=== PATIENT | female | born 1930 | race Hispanic/Latino ===

== ENCOUNTER 2018-07-01 12:39 | Inpatient (IN) | payer MEDICARE ==
--- NOTE | 2018-07-01 23:04 | CP.PCM.HP ---
History of Present Illness - History of Present Illness History of Present Illness: CC: Rehab s/p CVA HPI: This is an 88 y/o female with MHx significant for HTN, HLD, hypothyroid, DM2, glaucoma, and prior colon cancer who comes from [facility] [place] where after initially being admitted for a psychiatric diagnosis, she later developed a CVA. Per records, she was taken from psychiatric floor to ED for shuffling gait and R sided facial droop on 06/28/2018. Imaging revealed a L basal ganglia infarct. Currently she c/o only some weakness in RUE and RLE; she also has a R facial droop. Denies CP, SOB. Denies n/v/d. Patient does have a Crum in place. ROS: 14 systems reviewed, negative other than HPI MHx: HTN, HLD, hypothyroid, DM2, glaucoma, and prior colon cancer SHx: appendectomy, cholecystectomy Allergies: NKDA Medications: Per med rec Family Hx: Patient does not provide any relevant FHx Social Hx: 10 pack year smoking Hx but quit 30 years ago; no EtOH; Lives alone Present on Admission - Present on Admission Any Indicators Present on Admission: No Past Patient History - Infectious Disease Hx of Infectious Diseases: None - Tetanus Immunizations Tetanus Immunization: Unknown - Past Social History Smoking Status: Never Smoked - CARDIAC Hx Cardiac Disorders: Yes Hx Hypertension: Yes - PULMONARY Hx Chronic Obstructive Pulmonary Disease (COPD): Yes - NEUROLOGICAL Hx Neurological Disorder: Yes Other/Comment: neuropathy - HEENT Hx HEENT Problems: Yes Hx Cataracts: Yes (LEFT WITH BLURRY VISION) Hx Glaucoma: Yes (RIGHT EYE) - RENAL Hx Chronic Kidney Disease: No - ENDOCRINE/METABOLIC Hx Diabetes Mellitus Type 2: Yes - HEMATOLOGICAL/ONCOLOGICAL Hx Blood Disorders: No - INTEGUMENTARY Hx Dermatological Problems: No - MUSCULOSKELETAL/RHEUMATOLOGICAL Hx Falls: No - GASTROINTESTINAL Hx Gastrointestinal Disorders: Yes (ACUTE COLITIS) - GENITOURINARY/GYNECOLOGICAL Hx Genitourinary Disorders: No - PSYCHIATRIC Hx Anxiety: Yes Hx Depression: Yes - SURGICAL HISTORY Hx Appendectomy: Yes Hx Cholecystectomy: Yes Other/Comment: Colon tumor removal (benign) - ANESTHESIA Hx Anesthesia: Yes Hx Anesthesia Reactions: No Hx Malignant Hyperthermia: No Meds Allergies/Adverse Reactions: Allergies Allergy/AdvReac Type Severity Reaction Status Date / Time No Known Allergies Allergy Verified 06/28/18 14:34 Physical Exam - Constitutional Appears: No Acute Distress - Head Exam Head Exam: ATRAUMATIC, NORMOCEPHALIC Additional comments: R facial droop - Eye Exam Eye Exam: EOMI, PERRL - ENT Exam ENT Exam: Mucous Membranes Moist - Neck Exam Neck exam: Positive for: Full Rom - Respiratory Exam Respiratory Exam: Clear to Auscultation Bilateral, NORMAL BREATHING PATTERN - Cardiovascular Exam Cardiovascular Exam: REGULAR RHYTHM, +S1, +S2 - GI/Abdominal Exam GI & Abdominal Exam: Hyperactive Bowel Sounds, Soft - Extremities Exam Additional comments: 5/5 strength b/l, but RUE and RLE weaker than L side - Neurological Exam Neurological exam: Alert, CN II-XII Intact, Oriented x3 - Psychiatric Exam Psychiatric exam: Normal Affect, Normal Mood - Skin Skin Exam: Dry, Warm Assessment & Plan (1) CVA (cerebral vascular accident) Assessment and Plan: 88 y/o female with L sided CVA and R sided deficits. 1) CVA -Cont asa, plavix, and statin -BP management -Rehab starting in AM ([facility]) 2) DM2 -Cont LA insulin QHS -SSI with ACHS accucheck -DM diet 3) HTN -- cont medications from [facility] 4) HLD -- cont statin as above 5) DVT PPx -- SC lovenox Status: Acute (2) Gait abnormality Status: Acute (3) Diabetes Status: Chronic Priority: Medium (4) Hyperlipidemia Status: Chronic Priority: Medium (5) Hypertension Status: Chronic Priority: Medium (6) DVT prophylaxis Status: Acute
[2018-07-01] MEDS ORDERED: INSULIN DETEMIR 15 UNIT SC SCH (23:15)
[2018-07-01] MEDS: Insulin Detemir 100 Units/ml Inj SC SCH (23:38)
[2018-07-02] MEDS: Pantoprazole 40 mg Susp UD PO SCH (05:28)
[2018-07-02] MEDS: Insulin Lispro (humaLOG) 100 Units/ml Inj SC SCH ×4 (06:39→21:15)
[2018-07-02 07:40] LABS: URINE BACTERIA OCC (<OCC); URINE BILIRUBIN NEGATIVE (NEGATIVE); URINE BLOOD SMALL (NEGATIVE); URINE CLARITY CLEAR (Clear); URINE COLOR STRAW (YELLOW); URINE GLUCOSE (UA) NEG (NEGATIVE); URINE LEUKOCYTE ESTERASE SMALL Leu/uL (Negative); URINE PROTEIN NEGATIVE (NEGATIVE); URINE UROBILINOGEN 0.2-1.0 mg/dL (0.2-1.0)
[2018-07-02] MEDS: Enoxaparin 40 mg Syringe SC SCH (08:16)
[2018-07-02] MEDS: Metoprolol Succinate 25 mg XL Tab PO SCH (08:18)
--- NOTE | 2018-07-02 13:07 | PCM.PSYTMC ---
Acute Rehab Team Conference - - Vital Signs: Vital Signs (Last 8 Hours): Vital Signs 07/02/18 07/02/18 07/02/18 07:41 08:09 08:18 Temperature 96.3 F L 98.2 F Pulse Rate 77 65 88 Respiratory 20 22 Rate Blood Pressure 144/70 157/73 H 157/73 H O2 Sat by Pulse 97 Oximetry Pain: 0 - Toileting: Toileting: Contact Guard - Transfers: Transfers: Contact Guard - Patient/Family Teaching: Other Intervention:: re: fall precaution. needs reinforcement - Goals/Time Frame: Comment: patient free from fall - Provider: Registered Nurse:: Bernard King Physical Therapy - Ambulation Level of Assistance: Maximum Assistance Distance (ft.): 2 Speech Therapy - Assessment Expressive Language Impairment: Mild Speech/Articulation Impairment: Moderate Dysphagia/Swallowing Impairment: Moderate - Plan Plan: Continue Dysphagia Therapy, Continue Speech/Language Therapy Nutrition - Current Diet Current Diet/Supplement/Feedings: Heart healthy moderate consistent CHO mech altered(finely chopped). nectar thick liquids - Appetite Percent Meal Consumed: 50-74% - Assessment/Goals/Time Frame Assessments/Goals/Time Frame: Pt at high nutritional risk. goals: 1. Pt to consume 75-100% of meals. 2. Blood glucoses to be between 70-180 mg/dl. Follow-up due on 07/07/2018 - Provider Provider: Ale Martin Case Management - Discharge Plan Discharge Plan: Home alone Rehabilitation Plan - Treatment Plan Treatment Plan: Physical Therapy, Occupational Therapy, Speech, Dietary, Patient/Family Education - Discharge Plan Discharge to: Subacute (then to LTC)
--- NOTE | 2018-07-02 13:08 | PCM.OPOC ---
Physiatry Overall Plan of Care - Overall Plan of Care Estimated Length of Stay in Weeks: 3 Rehab Impairment: Mobility, Gait, Cognition, Speech, Balance, Coordination Etiologic Diagnosis: Cerebrovascular Accident Rehab/Medical Prognosis: Guarded - Anticipated Interventions Physical Therapy:: Yes Occupational Therapy:: Yes Speech Therapy:: Yes Recreational Therapy:: Yes - Therapy Goals Bed Mobility: Contact Guard Ambulation: Minimal Assistance Functional Positional Changes:: Contact Guard - Discharge Plan Identification of Barriers to Discharge: Home Situation Discharge Destination: Subacute
--- NOTE | 2018-07-02 13:09 | CP.PCM.CON ---
History of Present Illness - History of Present Illness History of Present Illness: Dr Padron PMR consultation on Chelsie Martinez, born 1930, who has been admitted to [facility] acute inpatient rehabilitation following an admission at [facility] with right facial droop and weakness. Work up revealed a left BG infarct. Weak ness is mild compared with the functional deficit secondary to severe apraxia. Right hand dominant. Review of Systems - Constitutional Constitutional: absent: Headache, Night Sweats - EENT Eyes: absent: Change in Vision Ears: absent: Ear Discharge, Ear Pain, Tinnitus Nose/Mouth/Throat: absent: Nasal Congestion, Nasal Discharge, Nose Pain - Cardiovascular Cardiovascular: absent: Chest Pain, Chest Pain at Rest, Diaphoresis, Syncope - Respiratory Respiratory: absent: Hemoptysis, Wheezing - Gastrointestinal Gastrointestinal: absent: Belching, Constipation, Diarrhea, Dyspepsia - Musculoskeletal Musculoskeletal: absent: Back Pain - Integumentary Integumentary: absent: Bleeding Lesions - Neurological Neurological: Lack of Coordination. absent: Abnormal Movements, Behavioral Changes, Disequilibrium - Psychiatric Psychiatric: absent: Anxiety Past Patient History - Infectious Disease Hx of Infectious Diseases: None - Tetanus Immunizations Tetanus Immunization: Unknown - Past Medical History & Family History Past Medical History?: Yes - Past Social History Smoking Status: Never Smoked Alcohol: None Drugs: Denies Home Situation {Lives}: Alone - CARDIAC Hx Cardiac Disorders: Yes Hx Hypertension: Yes - PULMONARY Hx Chronic Obstructive Pulmonary Disease (COPD): Yes - NEUROLOGICAL Hx Neurological Disorder: Yes Other/Comment: neuropathy - HEENT Hx HEENT Problems: Yes Hx Cataracts: Yes (LEFT WITH BLURRY VISION) Hx Glaucoma: Yes (RIGHT EYE) - RENAL Hx Chronic Kidney Disease: No - ENDOCRINE/METABOLIC Hx Diabetes Mellitus Type 2: Yes - HEMATOLOGICAL/ONCOLOGICAL Hx Blood Disorders: No - INTEGUMENTARY Hx Dermatological Problems: No - MUSCULOSKELETAL/RHEUMATOLOGICAL Hx Falls: No - GASTROINTESTINAL Hx Gastrointestinal Disorders: Yes (ACUTE COLITIS) - GENITOURINARY/GYNECOLOGICAL Hx Genitourinary Disorders: No - PSYCHIATRIC Hx Anxiety: Yes Hx Depression: Yes - SURGICAL HISTORY Hx Appendectomy: Yes Hx Cholecystectomy: Yes Other/Comment: Colon tumor removal (benign) - ANESTHESIA Hx Anesthesia: Yes Hx Anesthesia Reactions: No Hx Malignant Hyperthermia: No Meds Allergies/Adverse Reactions: Allergies Allergy/AdvReac Type Severity Reaction Status Date / Time No Known Allergies Allergy Verified 07/01/18 23:22 - Medications Medications: Current Medications Acetaminophen (Tylenol 325mg Tab) 650 mg PO Q6 PRN PRN Reason: TEMP>=99.5F Acetaminophen (Tylenol 650 Mg Supp) 650 mg RC Q6H PRN PRN Reason: TEMP>=99.5F Aspirin (Ecotrin) 81 mg PO DAILY [facility] Last Admin: 07/02/18 08:17 Dose: 81 mg Atorvastatin Calcium (Lipitor) 80 mg PO DIN [facility] Clopidogrel Bisulfate (Plavix) 75 mg PO DAILY [facility] Last Admin: 07/02/18 08:20 Dose: 75 mg Duloxetine HCl (Cymbalta) 40 mg PO DAILY [facility] Last Admin: 07/02/18 08:18 Dose: 40 mg Enoxaparin Sodium (Lovenox) 40 mg SC DAILY [facility]; Protocol Last Admin: 07/02/18 08:16 Dose: 40 mg Insulin Detemir (Levemir) 15 units SC [facility] Last Admin: 07/01/18 23:38 Dose: 15 units Insulin Human Lispro (Humalog) 0 units SC [facility]; Protocol Last Admin: 07/02/18 12:28 Dose: 2 units Metoprolol Succinate (Toprol Xl) 25 mg PO DAILY [facility] Last Admin: 07/02/18 08:18 Dose: 25 mg Pantoprazole Sodium (Protonix Susp) 40 mg PO 0600 [facility] Last Admin: 07/02/18 05:28 Dose: 40 mg Physical Exam - Constitutional Appears: Non-toxic - Head Exam Head Exam: ATRAUMATIC, NORMAL INSPECTION, NORMOCEPHALIC - Eye Exam Eye Exam: EOMI - ENT Exam ENT Exam: Mucous Membranes Moist - Respiratory Exam Respiratory Exam: NORMAL BREATHING PATTERN - Cardiovascular Exam Cardiovascular Exam: REGULAR RHYTHM - GI/Abdominal Exam GI & Abdominal Exam: Distended. absent: Firm - Extremities Exam Extremities exam: Negative for: calf tenderness - Neurological Exam Neurological exam: Alert, Oriented x3 (facial droop on the right) - Psychiatric Exam Psychiatric exam: Normal Affect, Normal Mood - Skin Skin Exam: Warm Results - Vital Signs Recent Vital Signs: Last Vital Signs Temp 98.2 F 07/02/18 08:09 Pulse 88 07/02/18 08:18 Resp 22 07/02/18 08:09 BP 157/73 H 07/02/18 08:18 Pulse Ox 97 07/02/18 08:09 - Labs Labs: Laboratory Results - last 24 hr 07/01/18 07/02/18 07/02/18 23:40 05:23 07:20 POC Glucose (mg/dL) 140 H 123 H Urine Color Straw Urine Clarity Clear Urine pH 7.0 Ur Specific Willard 1.009 Urine Protein Negative Urine Glucose (UA) Neg Urine Ketones Negative Urine Blood Small Urine Nitrate Negative Urine Bilirubin Negative Urine Urobilinogen 0.2-1.0 Ur Leukocyte Esterase Small Urine RBC (Auto) 5 H Urine Microscopic WBC 18 H Urine Bacteria Occ H 07/02/18 12:02 POC Glucose (mg/dL) 158 H Urine Color Urine Clarity Urine pH Ur Specific Willard Urine Protein Urine Glucose (UA) Urine Ketones Urine Blood Urine Nitrate Urine Bilirubin Urine Urobilinogen Ur Leukocyte Esterase Urine RBC (Auto) Urine Microscopic WBC Urine Bacteria Assessment & Plan - Assessment and Plan (Free Text) Assessment: 88 year old right hand dominant female with left CVA and right HP and apraxia Patient is an excellent acute rehabilitation candidate and will have focused PT, OT and recreational therapy to help facilitate a safe and appropriate d/c plan 4/5 left UE/LE strength. Impairment code 01.2 PT/OT to continue to help increase functional independence Team conference for d/c planning Pain: controlled Vascular: no evidence of DVT GI: No evidence of constipation or diarrhea
[2018-07-02] MEDS ORDERED: Patient's Own Med (Atorvastatin [Lipitor] 80 MG) PO SCH (17:00)
[2018-07-02] MEDS: Insulin Detemir 100 Units/ml Inj SC SCH (21:18)
[2018-07-03] MEDS: Pantoprazole 40 mg Susp UD PO SCH (06:03)
[2018-07-03] MEDS: Insulin Lispro (humaLOG) 100 Units/ml Inj SC SCH ×4 (07:07→22:00)
[2018-07-03] MEDS: Enoxaparin 40 mg Syringe SC SCH (08:34)
[2018-07-03] MEDS: Metoprolol Succinate 25 mg XL Tab PO SCH (08:34)
[2018-07-03] MEDS: Lactobacillus Acidophilus 500 MU Cap PO SCH (16:25)
--- NOTE | 2018-07-03 17:10 | CP.PCM.PN ---
Subjective - Date & Time of Evaluation Date of Evaluation: 07/03/18 Time of Evaluation: 17:09 - Subjective Subjective: Patient seen in the room doing ok denies sob/cp ambulating 40' with min A and RW continue current care. Objective - Vital Signs/Intake and Output Vital Signs (last 24 hours): Temp Pulse Resp BP Pulse Ox 97.1 F L 62 19 151/65 H 96 07/03/18 08:04 07/03/18 08:34 07/03/18 08:04 07/03/18 08:34 07/03/18 08:04 - Medications Medications: Current Medications Acetaminophen (Tylenol 325mg Tab) 650 mg PO Q6 PRN PRN Reason: TEMP>=99.5F Acetaminophen (Tylenol 650 Mg Supp) 650 mg RC Q6H PRN PRN Reason: TEMP>=99.5F Aspirin (Ecotrin) 81 mg PO DAILY [facility] Last Admin: 07/03/18 08:33 Dose: 81 mg Atorvastatin Calcium (Lipitor) 80 mg PO DIN [facility] Last Admin: 07/03/18 16:26 Dose: 80 mg Clopidogrel Bisulfate (Plavix) 75 mg PO DAILY [facility] Last Admin: 07/03/18 08:34 Dose: 75 mg Duloxetine HCl (Cymbalta) 40 mg PO DAILY [facility] Last Admin: 07/03/18 08:33 Dose: 40 mg Enoxaparin Sodium (Lovenox) 40 mg SC DAILY [facility]; Protocol Last Admin: 07/03/18 08:34 Dose: 40 mg Insulin Detemir (Levemir) 15 units SC HS [facility] Last Admin: 07/02/18 21:18 Dose: 15 units Insulin Human Lispro (Humalog) 0 units SC ACHS [facility]; Protocol Last Admin: 07/03/18 16:27 Dose: 2 units Lactobacillus Acidophilus (Bacid Acidophilus) 1 cap PO BID [facility] Last Admin: 07/03/18 16:25 Dose: 1 cap Metoprolol Succinate (Toprol Xl) 25 mg PO DAILY [facility] Last Admin: 07/03/18 08:34 Dose: 25 mg Nitrofurantoin Macrocrystals (Macrobid) 100 mg PO Q12 [facility]; Protocol Last Admin: 07/03/18 12:17 Dose: 100 mg Pantoprazole Sodium (Protonix Susp) 40 mg PO 0600 [facility] Last Admin: 07/03/18 06:03 Dose: 40 mg
--- NOTE | 2018-07-03 17:18 | CP.PCM.PN ---
Subjective - Date & Time of Evaluation Date of Evaluation: 07/03/18 Time of Evaluation: 10:00 - Subjective Subjective: Patient seen and examined. Had urinary retention last night and had to be catheterized producing 400 cc of urine. Denied dysuria. Objective - Vital Signs/Intake and Output Vital Signs (last 24 hours): Temp Pulse Resp BP Pulse Ox 97.1 F L 62 19 151/65 H 96 07/03/18 08:04 07/03/18 08:34 07/03/18 08:04 07/03/18 08:34 07/03/18 08:04 - Medications Medications: Current Medications Acetaminophen (Tylenol 325mg Tab) 650 mg PO Q6 PRN PRN Reason: TEMP>=99.5F Acetaminophen (Tylenol 650 Mg Supp) 650 mg RC Q6H PRN PRN Reason: TEMP>=99.5F Aspirin (Ecotrin) 81 mg PO DAILY [facility] Last Admin: 07/03/18 08:33 Dose: 81 mg Atorvastatin Calcium (Lipitor) 80 mg PO DIN [facility] Last Admin: 07/03/18 16:26 Dose: 80 mg Clopidogrel Bisulfate (Plavix) 75 mg PO DAILY [facility] Last Admin: 07/03/18 08:34 Dose: 75 mg Duloxetine HCl (Cymbalta) 40 mg PO DAILY [facility] Last Admin: 07/03/18 08:33 Dose: 40 mg Enoxaparin Sodium (Lovenox) 40 mg SC DAILY [facility]; Protocol Last Admin: 07/03/18 08:34 Dose: 40 mg Insulin Detemir (Levemir) 15 units SC HS [facility] Last Admin: 07/02/18 21:18 Dose: 15 units Insulin Human Lispro (Humalog) 0 units SC ACHS [facility]; Protocol Last Admin: 07/03/18 16:27 Dose: 2 units Lactobacillus Acidophilus (Bacid Acidophilus) 1 cap PO BID [facility] Last Admin: 07/03/18 16:25 Dose: 1 cap Metoprolol Succinate (Toprol Xl) 25 mg PO DAILY [facility] Last Admin: 07/03/18 08:34 Dose: 25 mg Nitrofurantoin Macrocrystals (Macrobid) 100 mg PO Q12 [facility]; Protocol Last Admin: 07/03/18 12:17 Dose: 100 mg Pantoprazole Sodium (Protonix Susp) 40 mg PO 0600 [facility] Last Admin: 07/03/18 06:03 Dose: 40 mg - Constitutional Appears: No Acute Distress - Head Exam Head Exam: ATRAUMATIC - Eye Exam Eye Exam: absent: Scleral icterus - ENT Exam ENT Exam: Mucous Membranes Moist - Neck Exam Neck Exam: absent: Meningismus - Respiratory Exam Respiratory Exam: absent: Rales, Rhonchi, Wheezes, Respiratory Distress - Cardiovascular Exam Cardiovascular Exam: REGULAR RHYTHM, +S1, +S2 - GI/Abdominal Exam GI & Abdominal Exam: Soft. absent: Tenderness - Rectal Exam Rectal Exam: Deferred - Neurological Exam Neurological Exam: Alert, Oriented x3 - Psychiatric Exam Psychiatric exam: Normal Affect - Skin Skin Exam: Dry, Intact Assessment and Plan - Assessment and Plan (Free Text) Assessment: 88 yo female with history of HTN, HLD, Hypothyroid, DM2, Glaucoma, and previous colon cancer initially admitted for psychiatric issue at [facility] [place] but was found to have right facial droop and shuffling gait. Imaging showed left basal ganglia infarct. 1. CVA (cerebral vascular accident) Continue ASA, Plavix, and Statin monitor and control BP physiatry consult with Dr Padron 2. DM2 BS relatively controlled Levemir 15 units SC HS 3. Hypertension BP slightly elevated continue Metoprolol 4. Gait abnormality continue PT/OT 5. DVT prophylaxis on Lovenox 40mg SC daily
[2018-07-03] MEDS: Insulin Detemir 100 Units/ml Inj SC SCH (21:33)
[2018-07-04] MEDS: Pantoprazole 40 mg Susp UD PO SCH (05:46)
[2018-07-04] MEDS: Insulin Lispro (humaLOG) 100 Units/ml Inj SC SCH ×4 (07:00→21:21)
[2018-07-04 07:09] LABS: HEMOGLOBIN 11.8 g/dL (12.0-16.0); MEAN CELL VOLUME 92.5 fl (81.0-99.0); MEAN CORPUSCULAR HEMOGLOBIN 31.9 pg (27.0-31.0); MEAN CORPUSCULAR HGB CONC 34.5 g/dL (33.0-37.0); RBC 3.69 Mil/uL (3.80-5.20); RED CELL DISTRIBUTION WIDTH 12.8 % (11.5-14.5); WHITE BLOOD COUNT 6.6 K/uL (4.8-10.8)
[2018-07-04 07:29] LABS: BLOOD UREA NITROGEN 12 mg/dl (7-17); CALCIUM 8.9 mg/dL (8.4-10.2); GFR NON-AFRICAN AMERICAN > 60
[2018-07-04] MEDS: Metoprolol Succinate 25 mg XL Tab PO SCH (08:43)
[2018-07-04] MEDS: Lactobacillus Acidophilus 500 MU Cap PO SCH ×2 (08:43→16:28)
[2018-07-04] MEDS: Enoxaparin 40 mg Syringe SC SCH (08:44)
[2018-07-04] MEDS ORDERED: Potassium Chloride 20 mEq ER Tab PO ONE (14:17)
[2018-07-04] MEDS ORDERED: Potassium Chloride 10 mEq ER Tab PO ONE (16:30)
[2018-07-04] MEDS: Insulin Detemir 100 Units/ml Inj SC SCH (22:41)
[2018-07-05] MEDS: Pantoprazole 40 mg Susp UD PO SCH (06:02)
[2018-07-05 06:45] LABS: BLOOD UREA NITROGEN 13 mg/dl (7-17); GFR NON-AFRICAN AMERICAN > 60
[2018-07-05] MEDS: Insulin Lispro (humaLOG) 100 Units/ml Inj SC SCH ×4 (06:56→21:47)
[2018-07-05] MEDS: Enoxaparin 40 mg Syringe SC SCH (08:14)
[2018-07-05] MEDS: Metoprolol Succinate 25 mg XL Tab PO SCH (08:15)
[2018-07-05] MEDS: Lactobacillus Acidophilus 500 MU Cap PO SCH ×2 (08:20→17:28)
--- NOTE | 2018-07-05 11:11 | CP.PCM.PN ---
Subjective - Date & Time of Evaluation Date of Evaluation: 07/05/18 Time of Evaluation: 11:10 - Subjective Subjective: Patient seen and examined. Denied any complaint. Continue to have indwelling singleton catheter as per advised from Dr Juarez because of urinary retention. Objective - Vital Signs/Intake and Output Vital Signs (last 24 hours): Temp Pulse Resp BP Pulse Ox 97.3 F L 60 20 144/66 96 07/05/18 07:35 07/05/18 08:15 07/05/18 07:35 07/05/18 08:15 07/05/18 07:35 Intake and Output: 07/05/18 07/05/18 06:59 18:59 Intake Total 360 Output Total 450 Balance -90 - Medications Medications: Current Medications Acetaminophen (Tylenol 325mg Tab) 650 mg PO Q6 PRN PRN Reason: TEMP>=99.5F Acetaminophen (Tylenol 650 Mg Supp) 650 mg RC Q6H PRN PRN Reason: TEMP>=99.5F Aspirin (Ecotrin) 81 mg PO DAILY [facility] Last Admin: 07/04/18 08:43 Dose: 81 mg Atorvastatin Calcium (Lipitor) 80 mg PO DIN [facility] Last Admin: 07/04/18 16:28 Dose: 80 mg Clopidogrel Bisulfate (Plavix) 75 mg PO DAILY [facility] Last Admin: 07/05/18 08:14 Dose: 75 mg Duloxetine HCl (Cymbalta) 40 mg PO DAILY [facility] Last Admin: 07/04/18 08:43 Dose: 40 mg Insulin Detemir (Levemir) 15 units SC HS [facility] Last Admin: 07/04/18 22:41 Dose: 15 units Insulin Human Lispro (Humalog) 0 units SC [facility]; Protocol Last Admin: 07/05/18 06:56 Dose: 2 units Lactobacillus Acidophilus (Bacid Acidophilus) 1 cap PO BID [facility] Last Admin: 07/05/18 08:20 Dose: 1 cap Lactulose (Enulose) 20 gm PO DAILY PRN PRN Reason: Constipation Metoprolol Succinate (Toprol Xl) 25 mg PO DAILY [facility] Last Admin: 07/05/18 08:15 Dose: 25 mg Nitrofurantoin Macrocrystals (Macrobid) 100 mg PO Q12 [facility]; Protocol Last Admin: 07/05/18 08:14 Dose: 100 mg Pantoprazole Sodium (Protonix Susp) 40 mg PO 0600 [facility] Last Admin: 07/05/18 06:02 Dose: 40 mg Tamsulosin HCl (Flomax) 0.4 mg PO DAILY [facility] Last Admin: 07/04/18 12:43 Dose: 0.4 mg - Labs Labs: 07/04/18 06:45 07/05/18 05:15 - Constitutional Appears: No Acute Distress - Head Exam Head Exam: ATRAUMATIC - Eye Exam Eye Exam: absent: Scleral icterus - ENT Exam ENT Exam: Mucous Membranes Moist - Neck Exam Neck Exam: absent: Meningismus - Respiratory Exam Respiratory Exam: absent: Rales, Rhonchi, Wheezes, Respiratory Distress - Cardiovascular Exam Cardiovascular Exam: REGULAR RHYTHM, +S1, +S2 - GI/Abdominal Exam GI & Abdominal Exam: Soft. absent: Tenderness - Rectal Exam Rectal Exam: Deferred - Back Exam Back Exam: NORMAL INSPECTION - Neurological Exam Neurological Exam: Alert, Oriented x3 - Psychiatric Exam Psychiatric exam: Normal Affect - Skin Skin Exam: Dry, Intact Assessment and Plan - Assessment and Plan (Free Text) Assessment: 88 yo female with history of HTN, HLD, Hypothyroid, DM2, Glaucoma, and previous colon cancer initially admitted for psychiatric issue at [facility] [place] but was found to ngo ve right facial droop and shuffling gait. Imaging showed left basal ganglia infarct. 1. CVA (cerebral vascular accident) Continue ASA, Plavix, and Statin Dr Padron on consult 2. DM2 BS relatively controlled Levemir 15 units SC HS 3. Hypertension BP stable continue Metoprolol 4. Gait abnormality continue PT/OT 5. UTI/urinary retention continue Macrobid for another 2 days urology consult with Dr Juarez for urinary retention urologist advised to continue with indwelling singleton catheter until discharged and he would follow her up in his office 6. DVT prophylaxis on Lovenox 40mg SC daily
--- NOTE | 2018-07-05 18:02 | CP.PCM.PN ---
Subjective - Date & Time of Evaluation Date of Evaluation: 07/05/18 Time of Evaluation: 18:01 - Subjective Subjective: Patient seen in the room voice is much stronger doing better with improved function excellent acute rehab patient. Objective - Vital Signs/Intake and Output Vital Signs (last 24 hours): Temp Pulse Resp BP Pulse Ox 97.3 F L 60 20 144/66 96 07/05/18 07:35 07/05/18 08:15 07/05/18 07:35 07/05/18 08:15 07/05/18 07:35 Intake and Output: 07/05/18 07/05/18 06:59 18:59 Intake Total 360 Output Total 450 Balance -90 - Medications Medications: Current Medications Acetaminophen (Tylenol 325mg Tab) 650 mg PO Q6 PRN PRN Reason: TEMP>=99.5F Acetaminophen (Tylenol 650 Mg Supp) 650 mg RC Q6H PRN PRN Reason: TEMP>=99.5F Aspirin (Ecotrin) 81 mg PO DAILY [facility] Last Admin: 07/05/18 09:00 Dose: 81 mg Atorvastatin Calcium (Lipitor) 80 mg PO DIN [facility] Last Admin: 07/05/18 17:30 Dose: 80 mg Clopidogrel Bisulfate (Plavix) 75 mg PO DAILY [facility] Last Admin: 07/05/18 08:14 Dose: 75 mg Duloxetine HCl (Cymbalta) 40 mg PO DAILY [facility] Last Admin: 07/05/18 09:00 Dose: 40 mg Insulin Detemir (Levemir) 15 units SC HS [facility] Last Admin: 07/04/18 22:41 Dose: 15 units Insulin Human Lispro (Humalog) 0 units SC [facility]; Protocol Last Admin: 07/05/18 17:29 Dose: 2 units Lactobacillus Acidophilus (Bacid Acidophilus) 1 cap PO BID [facility] Last Admin: 07/05/18 17:28 Dose: 1 cap Lactulose (Enulose) 20 gm PO DAILY PRN PRN Reason: Constipation Metoprolol Succinate (Toprol Xl) 25 mg PO DAILY [facility] Last Admin: 07/05/18 08:15 Dose: 25 mg Nitrofurantoin Macrocrystals (Macrobid) 100 mg PO Q12 [facility]; Protocol Last Admin: 07/05/18 08:14 Dose: 100 mg Pantoprazole Sodium (Protonix Susp) 40 mg PO 0600 [facility] Last Admin: 07/05/18 06:02 Dose: 40 mg Tamsulosin HCl (Flomax) 0.4 mg PO DAILY [facility] Last Admin: 07/05/18 10:00 Dose: 0.4 mg - Labs Labs: 07/04/18 06:45 07/05/18 05:15
[2018-07-05] MEDS: Insulin Detemir 100 Units/ml Inj SC SCH (21:46)
[2018-07-06] MEDS: Pantoprazole 40 mg Susp UD PO SCH (05:38)
[2018-07-06] MEDS: Insulin Lispro (humaLOG) 100 Units/ml Inj SC SCH ×4 (07:49→21:00)
[2018-07-06] MEDS: Metoprolol Succinate 25 mg XL Tab PO SCH (08:40)
[2018-07-06] MEDS: Lactobacillus Acidophilus 500 MU Cap PO SCH ×2 (10:00→16:52)
[2018-07-06] MEDS: Enoxaparin 40 mg Syringe SC SCH (15:00)
[2018-07-06] MEDS: Insulin Detemir 100 Units/ml Inj SC SCH (21:43)
[2018-07-07] MEDS: Pantoprazole 40 mg Susp UD PO SCH (06:39)
[2018-07-07] MEDS: Insulin Lispro (humaLOG) 100 Units/ml Inj SC SCH ×4 (06:41→21:07)
[2018-07-07] MEDS: Enoxaparin 40 mg Syringe SC SCH (08:31)
[2018-07-07] MEDS: Metoprolol Succinate 25 mg XL Tab PO SCH (08:33)
[2018-07-07] MEDS: Lactobacillus Acidophilus 500 MU Cap PO SCH ×2 (08:35→17:08)
[2018-07-07] MEDS: Insulin Detemir 100 Units/ml Inj SC SCH (21:51)
[2018-07-08] MEDS: Pantoprazole 40 mg Susp UD PO SCH (05:24)
[2018-07-08 05:59] LABS: HEMOGLOBIN 12.1 g/dL (12.0-16.0); MEAN CELL VOLUME 92.9 fl (81.0-99.0); MEAN CORPUSCULAR HEMOGLOBIN 31.8 pg (27.0-31.0); MEAN CORPUSCULAR HGB CONC 34.2 g/dL (33.0-37.0); RBC 3.79 Mil/uL (3.80-5.20); RED CELL DISTRIBUTION WIDTH 12.6 % (11.5-14.5); WHITE BLOOD COUNT 6.3 K/uL (4.8-10.8)
[2018-07-08 06:05] LABS: BLOOD UREA NITROGEN 12 mg/dl (7-17); CALCIUM 9.2 mg/dL (8.4-10.2); GFR NON-AFRICAN AMERICAN > 60
[2018-07-08] MEDS: Insulin Lispro (humaLOG) 100 Units/ml Inj SC SCH ×4 (06:37→21:39)
[2018-07-08] MEDS: Lactobacillus Acidophilus 500 MU Cap PO SCH (08:09)
[2018-07-08] MEDS: Metoprolol Succinate 25 mg XL Tab PO SCH (08:09)
[2018-07-08] MEDS: Enoxaparin 40 mg Syringe SC SCH (08:10)
--- NOTE | 2018-07-08 15:05 | CP.PCM.PN ---
<Max Mosher - Last Filed: 07/08/18 15:02> Subjective - Date & Time of Evaluation Date of Evaluation: 07/08/18 Time of Evaluation: 15:02 - Subjective Subjective: 88 yo female with history of HTN, HLD, Hypothyroid, DM2, Glaucoma, and previous colon cancer initially admitted for psychiatric issue at [facility] but was found to have right facial droop and shuffling gait. Imaging showed left basal ganglia infarct. Patient was seen working with physical therapy in [facility]. Patient answering all questions and denies any complaints. As per nursing, no overnight events. Objective - Vital Signs/Intake and Output Vital Signs (last 24 hours): Temp Pulse Resp BP Pulse Ox 97.7 F 56 L 20 143/65 96 07/08/18 07:53 07/08/18 08:09 07/08/18 07:53 07/08/18 08:09 07/08/18 07:53 Intake and Output: 07/08/18 07/08/18 06:59 18:59 Intake Total 360 Output Total 1300 Balance -940 - Medications Medications: Current Medications Acetaminophen (Tylenol 325mg Tab) 650 mg PO Q6 PRN PRN Reason: TEMP>=99.5F Acetaminophen (Tylenol 650 Mg Supp) 650 mg RC Q6H PRN PRN Reason: TEMP>=99.5F Aspirin (Ecotrin) 81 mg PO DAILY [facility] Last Admin: 07/08/18 08:10 Dose: 81 mg Atorvastatin Calcium (Lipitor) 80 mg PO DIN [facility] Last Admin: 07/07/18 17:09 Dose: 80 mg Clopidogrel Bisulfate (Plavix) 75 mg PO DAILY [facility] Last Admin: 07/08/18 08:10 Dose: 75 mg Duloxetine HCl (Cymbalta) 40 mg PO DAILY [facility] Last Admin: 07/08/18 08:12 Dose: 40 mg Enoxaparin Sodium (Lovenox) 40 mg SC DAILY [facility]; Protocol Last Admin: 07/08/18 08:10 Dose: 40 mg Insulin Detemir (Levemir) 15 units SC HS [facility] Last Admin: 07/07/18 21:51 Dose: 15 units Insulin Human Lispro (Humalog) 0 units SC ACHS [facility]; Protocol Last Admin: 07/08/18 12:00 Dose: 4 units Lactulose (Enulose) 20 gm PO DAILY [facility] Metoprolol Succinate (Toprol Xl) 25 mg PO DAILY [facility] Last Admin: 07/08/18 08:09 Dose: 25 mg Pantoprazole Sodium (Protonix Susp) 40 mg PO 0600 [facility] Last Admin: 07/08/18 05:24 Dose: 40 mg Tamsulosin HCl (Flomax) 0.4 mg PO DAILY [facility] Last Admin: 07/08/18 08:11 Dose: 0.4 mg - Labs Labs: 07/08/18 05:20 07/08/18 05:20 - Constitutional Appears: Well, Non-toxic, No Acute Distress - Head Exam Head Exam: ATRAUMATIC, NORMOCEPHALIC - Eye Exam Eye Exam: Normal appearance - ENT Exam ENT Exam: Mucous Membranes Moist - Respiratory Exam Respiratory Exam: Clear to Ausculation Bilateral, NORMAL BREATHING PATTERN. absent: Rales, Rhonchi, Wheezes - Cardiovascular Exam Cardiovascular Exam: REGULAR RHYTHM, +S1, +S2 - GI/Abdominal Exam GI & Abdominal Exam: Soft, Normal Bowel Sounds. absent: Firm, Guarding, Rigid - Rectal Exam Rectal Exam: Deferred - Neurological Exam Neurological Exam: Alert, Awake - Psychiatric Exam Psychiatric exam: Normal Affect, Normal Mood Assessment and Plan - Assessment and Plan (Free Text) Assessment: 88 yo female with history of HTN, HLD, Hypothyroid, DM2, Glaucoma, and previous colon cancer initially admitted for psychiatric issue at [facility] but was found to have right facial droop and shuffling gait. Imaging showed left basal ganglia infarct. Plan: 1. CVA (cerebral vascular accident) - Continue ASA, Plavix, and Statin - Dr Padron on consult, recommendations appreciated 2. Type II DM - BS relatively controlled - Levemir 15 units SC HS 3. Hypertension - BP stable - continue Metoprolol 25 mg PO DAILY 4. Gait abnormality - continue PT/OT/ST- PTrecommendation to go to [facility] 5. UTI/urinary retention - completed Macrobid - continue Flomax 0.4 mg PO DAILY - urology consult with Dr Juarez for urinary retention - urologist advised to continue with indwelling singleton catheter, plan for d/c singleton on 07/09/18 as patient will be going to [facility] 6. DVT prophylaxis on Lovenox 40mg SC daily <Rosina Simmons - Last Filed: 07/08/18 17:53> Objective - Vital Signs/Intake and Output Vital Signs (last 24 hours): Temp Pulse Resp BP Pulse Ox 97.7 F 66 20 143/65 100 07/08/18 07:53 07/08/18 16:11 07/08/18 07:53 07/08/18 08:09 07/08/18 16:11 Intake and Output: 07/08/18 07/08/18 06:59 18:59 Intake Total 360 300 Output Total 1300 550 Balance -940 -250 - Medications Medications: Current Medications Acetaminophen (Tylenol 325mg Tab) 650 mg PO Q6 PRN PRN Reason: TEMP>=99.5F Acetaminophen (Tylenol 650 Mg Supp) 650 mg RC Q6H PRN PRN Reason: TEMP>=99.5F Aspirin (Ecotrin) 81 mg PO DAILY [facility] Last Admin: 07/08/18 08:10 Dose: 81 mg Atorvastatin Calcium (Lipitor) 80 mg PO DIN [facility] Last Admin: 07/08/18 17:17 Dose: 80 mg Clopidogrel Bisulfate (Plavix) 75 mg PO DAILY [facility] Last Admin: 07/08/18 08:10 Dose: 75 mg Duloxetine HCl (Cymbalta) 40 mg PO DAILY [facility] Last Admin: 07/08/18 08:12 Dose: 40 mg Enoxaparin Sodium (Lovenox) 40 mg SC DAILY [facility]; Protocol Last Admin: 07/08/18 08:10 Dose: 40 mg Insulin Detemir (Levemir) 15 units SC HS [facility] Last Admin: 07/07/18 21:51 Dose: 15 units Insulin Human Lispro (Humalog) 0 units SC [facility]; Protocol Last Admin: 07/08/18 17:17 Dose: 3 units Lactulose (Enulose) 20 gm PO DAILY [facility] Metoprolol Succinate (Toprol Xl) 25 mg PO DAILY [facility] Last Admin: 07/08/18 08:09 Dose: 25 mg Pantoprazole Sodium (Protonix Susp) 40 mg PO 0600 [facility] Last Admin: 07/08/18 05:24 Dose: 40 mg Tamsulosin HCl (Flomax) 0.4 mg PO DAILY [facility] Last Admin: 07/08/18 08:11 Dose: 0.4 mg - Labs Labs: 07/08/18 05:20 07/08/18 05:20 Attending/Attestation - Attestation I have personally seen and examined this patient.: Yes I have fully participated in the care of the patient.: Yes I have reviewed all pertinent clinical information, including history, physical exam and plan: Yes
--- NOTE | 2018-07-08 18:28 | CP.PCM.PN ---
Subjective - Date & Time of Evaluation Date of Evaluation: 07/08/18 Time of Evaluation: 18:28 - Subjective Subjective: Patient is comfortable able to ambulate 140' with RW and Min A no cyanosis or jaundice. continue current care Objective - Vital Signs/Intake and Output Vital Signs (last 24 hours): Temp Pulse Resp BP Pulse Ox 97.7 F 66 20 143/65 100 07/08/18 07:53 07/08/18 16:11 07/08/18 07:53 07/08/18 08:09 07/08/18 16:11 Intake and Output: 07/08/18 07/08/18 06:59 18:59 Intake Total 360 300 Output Total 1300 550 Balance -940 -250 - Medications Medications: Current Medications Acetaminophen (Tylenol 325mg Tab) 650 mg PO Q6 PRN PRN Reason: TEMP>=99.5F Acetaminophen (Tylenol 650 Mg Supp) 650 mg RC Q6H PRN PRN Reason: TEMP>=99.5F Aspirin (Ecotrin) 81 mg PO DAILY [facility] Last Admin: 07/08/18 08:10 Dose: 81 mg Atorvastatin Calcium (Lipitor) 80 mg PO DIN [facility] Last Admin: 07/08/18 17:17 Dose: 80 mg Clopidogrel Bisulfate (Plavix) 75 mg PO DAILY [facility] Last Admin: 07/08/18 08:10 Dose: 75 mg Duloxetine HCl (Cymbalta) 40 mg PO DAILY [facility] Last Admin: 07/08/18 08:12 Dose: 40 mg Enoxaparin Sodium (Lovenox) 40 mg SC DAILY [facility]; Protocol Last Admin: 07/08/18 08:10 Dose: 40 mg Insulin Detemir (Levemir) 15 units SC HS [facility] Last Admin: 07/07/18 21:51 Dose: 15 units Insulin Human Lispro (Humalog) 0 units SC ACHS [facility]; Protocol Last Admin: 07/08/18 17:17 Dose: 3 units Lactulose (Enulose) 20 gm PO DAILY [facility] Metoprolol Succinate (Toprol Xl) 25 mg PO DAILY [facility] Last Admin: 07/08/18 08:09 Dose: 25 mg Pantoprazole Sodium (Protonix Susp) 40 mg PO 0600 [facility] Last Admin: 07/08/18 05:24 Dose: 40 mg Tamsulosin HCl (Flomax) 0.4 mg PO DAILY [facility] Last Admin: 07/08/18 08:11 Dose: 0.4 mg - Labs Labs: 07/08/18 05:20 07/08/18 05:20
[2018-07-08] MEDS: Insulin Detemir 100 Units/ml Inj SC SCH (21:50)
[2018-07-09] MEDS: Pantoprazole 40 mg Susp UD PO SCH (05:20)
[2018-07-09] MEDS: Insulin Lispro (humaLOG) 100 Units/ml Inj SC SCH ×4 (06:46→21:58)
[2018-07-09] MEDS: Enoxaparin 40 mg Syringe SC SCH (08:10)
[2018-07-09] MEDS: Metoprolol Succinate 25 mg XL Tab PO SCH (08:11)
--- NOTE | 2018-07-09 08:14 | CP.PCM.PN ---
Subjective - Date & Time of Evaluation Date of Evaluation: 07/09/18 Time of Evaluation: 08:09 - Subjective Subjective: Gu note discussed with nursing staff,81 year old female who was admitted to rehab after [facility]va. Pt has alondra into urinary retention several times and now has singleton. A urinary retention Suggest Leave singleton for 1 month then give voiding trial after spinal shock from cva is likley to have improved Urological follow up after discharge or transfer is recomended.Ann Objective - Vital Signs/Intake and Output Vital Signs (last 24 hours): Temp Pulse Resp BP Pulse Ox 97.2 F L 62 20 139/64 96 07/08/18 19:44 07/08/18 19:44 07/08/18 19:44 07/08/18 19:44 07/08/18 19:44 Intake and Output: 07/09/18 07/09/18 06:59 18:59 Intake Total 200 Output Total 800 Balance -600 - Medications Medications: Current Medications Acetaminophen (Tylenol 325mg Tab) 650 mg PO Q6 PRN PRN Reason: TEMP>=99.5F Acetaminophen (Tylenol 650 Mg Supp) 650 mg RC Q6H PRN PRN Reason: TEMP>=99.5F Aspirin (Ecotrin) 81 mg PO DAILY [facility] Last Admin: 07/08/18 08:10 Dose: 81 mg Atorvastatin Calcium (Lipitor) 80 mg PO DIN [facility] Last Admin: 07/08/18 17:17 Dose: 80 mg Clopidogrel Bisulfate (Plavix) 75 mg PO DAILY [facility] Last Admin: 07/08/18 08:10 Dose: 75 mg Duloxetine HCl (Cymbalta) 40 mg PO DAILY [facility] Last Admin: 07/08/18 08:12 Dose: 40 mg Enoxaparin Sodium (Lovenox) 40 mg SC DAILY [facility]; Protocol Last Admin: 07/08/18 08:10 Dose: 40 mg Insulin Detemir (Levemir) 15 units SC HS [facility] Last Admin: 07/08/18 21:50 Dose: 15 units Insulin Human Lispro (Humalog) 0 units SC ACHS [facility]; Protocol Last Admin: 07/09/18 06:46 Dose: 2 units Lactulose (Enulose) 20 gm PO DAILY [facility] Metoprolol Succinate (Toprol Xl) 25 mg PO DAILY [facility] Last Admin: 07/08/18 08:09 Dose: 25 mg Pantoprazole Sodium (Protonix Susp) 40 mg PO 0600 [facility] Last Admin: 07/09/18 05:20 Dose: 40 mg Tamsulosin HCl (Flomax) 0.4 mg PO DAILY [facility] Last Admin: 07/08/18 08:11 Dose: 0.4 mg - Labs Labs: 07/08/18 05:20 07/08/18 05:20
--- NOTE | 2018-07-09 13:04 | PCM.PSYTMC ---
Acute Rehab Team Conference - - Vital Signs: Vital Signs (Last 8 Hours): Vital Signs 07/09/18 07/09/18 08:11 08:39 Temperature 97.5 F L Pulse Rate 64 64 Respiratory 19 Rate Blood Pressure 131/63 131/63 O2 Sat by Pulse 95 Oximetry Pain: 0 - Precautions: Precautions: Fall Prevention, Aspiration - Medications/Other Issues: Comment: -Urinary retention. With singleton catheter Fr. 16. Will discontinue catheter tomorrow for trial. Will restart bladder scanning again tomorrow. -On finely-chopped diet and nectar thickened liquids. Keep aspiration precautions. -Slurred speech and generalized weakness. - Consults: Comment: Dr. Padron - Physiatry. Dr. Juarez - Urology - Skin: Incision Site: n/a - Toileting: Toileting: Dependent - Bladder Management: Bladder Pattern: Retention Voiding Method: Indwelling Catheter Bladder Management: Dependent - Transfers: Transfers: Moderate Assistance - ADL's: ADL's: Moderate Assistance - Pain Management: Other Intervention:: No complaints of pain - Patient/Family Teaching: Other Intervention:: -Teach patient about urinary retention, stroke, and s/s of stroke. -Teach infection prevention. - Goals/Time Frame: Comment: Provide perineal care and catheter care qshift and PRN. Keep patient on aspiration and fall precautions until next team conference or discharge. - Provider: Registered Nurse:: Roseanne Garcia Physical Therapy - Bed Mobility Bed Mobility: Verbal Cues, Minimal Assistance, Moderate Assistance Comment: rolling min. bed mob mod A. mod vc/tc for sequenicng and safety. Pt required incr'd assist for supine to sit - Transfers Wheelchair to Mat: Verbal Cues, Moderate Assistance, Maximum Assistance Sit to Stand: Verbal Cues, Moderate Assistance, Maximum Assistance Comment: mod vc/tc for sequenicng and safety. Pt required incr'd assist for t/f today. pt w/ difficulty coordinating BLE movement during SPT. scooting on bed CS. scooting bkwd in w/c CS (w/ BLE supported on leg rests). scooting fwd w/ min/mod A (pt w/ less difficulty. decr'd assist needed for t/f when pt scoots fwd first - Ambulation Level of Assistance: Verbal Cues, Minimal Assistance, Moderate Assistance Distance (ft.): 140 Assistive Devices: Rolling Walker Orthoses: x1, 75' x1 w/ w/c follow. vc/tc for upright posture, B heel strike (R > L), incr step length, incr SIENA. unsteady, intermittent difficulty advancing RLE. difficulty navigating turns and obstacles. Improved stability noted w/ incr'd step length Comment: difficulty navigating turns and obstacles - Stair Negotiation Stairs: Level of Assistance: Not Tested Comment: Not performed. Pt declined attempting stairs today, states she will attempt tomorrow - Standing Balance Static Stand: Minimal Assistance Comment: w/ RW - Pain Pain (assessed during therapy session): 0 Comment: pt denies - Insight/Carryover Insight/Carryover: Fair - Patient/Family Education Comment: fxnl mob, balance, safety, DME, posture, PT goals, benefits of PT, dx related topics - Assessment/Plan Assessment: 88 year old female admitted to [facility] acute rehab s/p acute L basal ganglia/lal radiata CVA. Pt presents w/ improving strength, ROM, postural control, motor planning, initiation, coordination, balance and activity tolerance. Pt requires mod/maximal assistance with transfers and min/mod A for bed mobility adn RW amb at this time. Cont'd skilled PT recommended to address deficits. - Goals Timeframe: 3 weeks Goals: asc/desc 1 flight of steps with min A with single rail. CG x 250 feet with RW. CG with transfers with RW. supervision with bed/mat mobility - Provider Physical Therapist:: Diandra Albrecht License Number:: [id number] Occupational Therapy - Arousal/Attention/Orientation Level of Consciousness: Awake, Forgetful, Confused Patient Orientation: Person Assessment Comment: + R eye blindness - ADL/IADL Self Feeding: Supervision, Verbal Cues, Set-up Help Grooming: Verbal Cues, Set-up Help, Minimal Assistance Dressing-Upper Ext: Supervision, Verbal Cues, Set-up Help, Contact Guard Dressing-Lower Ext: Verbal Cues, Set-up Help, Moderate Assistance - Sitting Balance Static Sitting: Supervision Dynamic Sitting: Reaches across midline, Reaches out of base of support, Reaches within base of support, Contact Guard Assist - Transfers Wheelchair to Bed Transfers: Verbal Cues, Set-up Help, Minimal Assistance, Moderate Assistance Toilet Transfers: Verbal Cues, Set-up Help, Minimal Assistance, Moderate Assistance Comment: -shower: TBA. -pt needs mod assist & verbal cues for sit<->stand, but min assist & verbal/tactile to weightshift, step safely - Wheelchair Management Level of Assistance: Verbal Cues, Set-up Help, Contact Guard, Minimal Assistance Distance (ft.): 100 - Upper Extremity Status Right Upper Extremity Comment: AROM is WFLs; strength 3-/5 in shoulder and 3/5 in rest of pivots, impaired gross/fine motor cooordination and dexterity Left Upper Extremity Comment: AROM is WFLS - Pain Pain (assessed during therapy session): 0 Comment: needs encouragement engage and complete tasks - Insight/Carryover Insight/Carryover: Fair - Patient/Family Education Comment: -rehab/OT goals, plan of care. -use of call stone for assistance. - adl, transfer/mobility using adaptive/compensatory strategies, cary-techniques. -safety strategies. -toileting program to minimize/prevent bowel incontinence. -w/c propulsion/management. -RUE management, intergration during adls - Assessment/Plan Assessment: Pt is a 88 year old female with dx: acute CVA. Precautions: aspiration precautions(nectar/purree), falls(bed/w/c alarm), cardiac, + bladder/bowel incontinence. Pt limited by impaired R eye vision(blind), impaired RUE gross/fine motor function/AROM, impaired standing balance/tolerance , impaired endurance/activity tolerance, impaired cognition(memory, insight,judgement, problem-solving, sequencing, safety awareness--which impact on overall function in adls, transfers/mobility. Pt will continue skilled OT to address functional impairments to maxmize function in self care, transfers/mobility. Pt takes longer than customary to complete all tasks. Goal: CS/CG and verbal cues overall for adls, transfers and mobility. Pt will likely need 24 hour care @ home or [facility]' physical, cognition and visual deficits. - Goals Timeframe: 8 days Comment: -FEEDING: I/setup. -GROOMING: Supervision/setup. -UPPER BODY DRESSING: I/setup. -LOWER BODY DRESSING: min assist and verbal cues. -BATHING: moderate assist and verbal cues seated. -TOILETING: min assist and verbal cues. -RUE STRENGTH: increase to 4-/5 throughout for improve feeding/adls/hand writing functions, completion of bimanual tasks. -W/C MANAGEMENT/PROPULSION: 100 feet or greater with Supervision & verbal cues, manages B brakes with Supervision and verbal cues for safety. -TRANSFERS:<->bed, commode, w/c and other surfaces with min assist and verbal cues. -BED MOBILITY: supine<->sit, roll B sides with Min assist and verbal cues with use of bedrails - Provider Occupational Therapist:: Gisell Wilkinson License Number: [id number] Speech Therapy - Consult Information Patient on Program: Yes Medical Diagnosis: CVA - Assessment Expressive Language Impairment: Moderate Comment: mild-moderate Speech/Articulation Impairment: Moderate Dysphagia/Swallowing Impairment: Moderate - Plan Assessment: Chelsie Martinez presents with 1.) moderate dysarthria characterized by R facial weakness, impaired respiration for phonation, low vocal volume with hoarse, breathy vocal quality, and impaired articulatory precision, all negatively impacting speech intelligibility; 2.) mild-moderate expressive aphasia characterized by impaired word retrieval and sentence formation/thought organization to effectively communicate wants/needs/ideas; and 3.) moderate oral and suspected pharyngeal dysphagia characterized by R facial weakness resulting in impaired labial seal with intermittent R anterior spillage with liquids, mild R oral pocketing, prolonged mastication and A-P transit time for solids, impaired bolus control of thin liquids with suspected premature spillage, reduced laryngeal elevation, and coughing with thin liquids. Recommend maintenance of finely chopped solids and nectar thick liquids; maintain aspiration precautions. Pt has been demonstrating progress in tolerance of thin liquids in tx with use of chin tuck, though requires max cues to remember to utilize chin tuck and do so appropriately. She has also demonstrated improved speech intelligibility at the word level with use of compensatory speech strategies with cueing. Pt would benefit from continued speech and dysphagia tx 3-5x/week for improved swallow function and safety for PO intake and improved communicative effectiveness. Plan: Continue Dysphagia Therapy, Continue Speech/Language Therapy Frequency: 3-5 times per week Duration: 1 week Goals/Timeframe: Please see progress note completed 07/08/18 for updated goals/POC Recommendations: -Continue speech and dysphagia tx 3-5x/week. -Maintain finely chopped solids/nectar thick liquids - Provider Therapist: Angelia Zambrano License Number: [id number] Recreational Therapy - Participation Participation: Participates in Individual and/or Group Sessions - Attendance Attendance: 3-5 times per week - Activities Leisure Activities: Cards and Games - Socialization Level of Socialization: Initiates/interacts freely with care givers and peer - Diversional Time Diversional Time: cards - Assessment Assessment/Plan: Pt is agreeable to participate in 1:1 and group recreation therapy sessions throughout stay on unit. Pt has participated in card tasks such as go-fish and modified tran card tasks. Pt is oriented to leisure tasks related to direction following and motor planning tasks to improve initiation and carryover of task rules. Pt requires supervision-min A with all leisure tasks. Pt is doing well and will continue to benefit from participating in recreation t herapy sessions throughout stay on unit. Problems Currently Limiting Participation: decrease direction following, impaired motor planning, decrease initiation, decrease leisure awareness level Goals and Time Frame: Pt will be encouraged to participate in 1:1 and group recreation therapy sessions to improve direction following, leisure awareness level, attention to task, and overall mood state. - Provider Therapist: Payton Gutierrez Nutrition - Current Diet Current Diet/Supplement/Feedings: Heart healthy moderate consistent CHO Mech altered(finely chopped). nectar thick liquids ensure pudding 4 ounces 2 per day - Appetite Percent Meal Consumed: 75-100% - Assessment/Goals/Time Frame Assessments/Goals/Time Frame: Pt at high nutritional risk. goals: 1. Pt to consume 75-100% of meals- not met, continue. 2. Blood glucoses to be between 70-180 mg/dl- partially met, continue. Follow-up due on 07/10/2018 - Provider Provider: Ale Martin Case Management - Psychosocial Assessment Support Systems: Pt. has no family, but neighbors have been called to check on patient and express concern and have assisted her in the past. Psychological Interventions/Needs: Patient is AAO, slow to respond, and has some confusion. Discharge Concerns: Patient has no family, but has arranged for herself to go to the [facility] after her rehabilitation ([facility] as well if needed). Patient/Family Meeting: CM met with patient and rehab team. Intervention/Goal/Outcome: 1. Goal: 24hr supervision/care 2. Plan: [facility] with [facility] if needed/pending progress 3. place call to patient's friend who was paying her rent and bills 4. continued emotional support - Discharge Plan Discharge Plan: snf care - Provider Provider: Deb Meza License Number: [id number] Rehabilitation Plan - Treatment Plan Treatment Plan: Physical Therapy, Occupational Therapy, Speech, Dietary, Patient/Family Education - Discharge Plan Estimated Date of Discharge: 07/21/18 Discharge to: Subacute
--- NOTE | 2018-07-09 13:23 | CP.PCM.PN ---
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 [facility] Objective - Vital Signs/Intake and Output Vital Signs (last 24 hours): Temp Pulse Resp BP Pulse Ox 97.5 F L 64 19 131/63 95 07/09/18 08:39 07/09/18 08:39 07/09/18 08:39 07/09/18 08:39 07/09/18 08:39 Intake and Output: 07/09/18 07/09/18 06:59 18:59 Intake Total 200 Output Total 800 Balance -600 - Medications Medications: Current Medications Acetaminophen (Tylenol 325mg Tab) 650 mg PO Q6 PRN PRN Reason: TEMP>=99.5F Acetaminophen (Tylenol 650 Mg Supp) 650 mg RC Q6H PRN PRN Reason: TEMP>=99.5F Aspirin (Ecotrin) 81 mg PO DAILY [facility] Last Admin: 07/09/18 08:08 Dose: 81 mg Atorvastatin Calcium (Lipitor) 80 mg PO DIN [facility] Last Admin: 07/08/18 17:17 Dose: 80 mg Clopidogrel Bisulfate (Plavix) 75 mg PO DAILY [facility] Last Admin: 07/09/18 08:10 Dose: 75 mg Duloxetine HCl (Cymbalta) 40 mg PO DAILY [facility] Last Admin: 07/09/18 08:10 Dose: 40 mg Enoxaparin Sodium (Lovenox) 40 mg SC DAILY [facility]; Protocol Last Admin: 07/09/18 08:10 Dose: 40 mg Insulin Detemir (Levemir) 15 units SC [facility] Last Admin: 07/08/18 21:50 Dose: 15 units Insulin Human Lispro (Humalog) 0 units SC [facility]; Protocol Last Admin: 07/09/18 12:04 Dose: 4 units Lactulose (Enulose) 20 gm PO DAILY [facility] Last Admin: 07/09/18 08:09 Dose: 20 gm Metoprolol Succinate (Toprol Xl) 25 mg PO DAILY [facility] Last Admin: 07/09/18 08:11 Dose: 25 mg Pantoprazole Sodium (Protonix Susp) 40 mg PO 0600 [facility] Last Admin: 07/09/18 05:20 Dose: 40 mg Tamsulosin HCl (Flomax) 0.4 mg PO DAILY [facility] Last Admin: 07/09/18 08:08 Dose: 0.4 mg - Labs Labs: 07/08/18 05:20 07/08/18 05:20
[2018-07-09] MEDS: Insulin Detemir 100 Units/ml Inj SC SCH (21:58)
[2018-07-10] MEDS: Pantoprazole 40 mg Susp UD PO SCH (05:43)
[2018-07-10] MEDS: Insulin Lispro (humaLOG) 100 Units/ml Inj SC SCH ×4 (07:39→21:08)
[2018-07-10] MEDS: Metoprolol Succinate 25 mg XL Tab PO SCH (08:06)
[2018-07-10 12:16] LABS: HEMOGLOBIN 12.7 g/dL (12.0-16.0); MEAN CELL VOLUME 95.3 fl (81.0-99.0); MEAN CORPUSCULAR HEMOGLOBIN 31.6 pg (27.0-31.0); MEAN CORPUSCULAR HGB CONC 33.2 g/dL (33.0-37.0); RBC 4.02 Mil/uL (3.80-5.20); RED CELL DISTRIBUTION WIDTH 12.7 % (11.5-14.5); WHITE BLOOD COUNT 8.8 K/uL (4.8-10.8)
[2018-07-10 13:02] LABS: ALB/GLOB RATIO 1.1 (1.0-2.1); ALBUMIN 3.9 g/dL (3.5-5.0); ALT/SGPT 34 U/L (9-52); AST/SGOT 40 U/L (14-36); BLOOD UREA NITROGEN 18 mg/dl (7-17); CALCIUM 9.4 mg/dL (8.4-10.2); GFR NON-AFRICAN AMERICAN > 60
--- NOTE | 2018-07-10 13:22 | CP.PCM.PN ---
Subjective - Date & Time of Evaluation Date of Evaluation: 07/10/18 Time of Evaluation: 10:00 - Subjective Subjective: Patient seen and examined. Denied any complaint. Singleton catheter pulled out yesterday and was able to urinate without any problem. Objective - Vital Signs/Intake and Output Vital Signs (last 24 hours): Temp Pulse Resp BP Pulse Ox 97.8 F 68 19 122/79 98 07/10/18 09:08 07/10/18 09:08 07/10/18 09:08 07/10/18 09:08 07/10/18 09:08 - Medications Medications: Current Medications Acetaminophen (Tylenol 325mg Tab) 650 mg PO Q6 PRN PRN Reason: TEMP>=99.5F Acetaminophen (Tylenol 650 Mg Supp) 650 mg RC Q6H PRN PRN Reason: TEMP>=99.5F Aspirin (Ecotrin) 81 mg PO DAILY [facility] Last Admin: 07/10/18 08:06 Dose: 81 mg Atorvastatin Calcium (Lipitor) 80 mg PO DIN [facility] Last Admin: 07/09/18 16:08 Dose: 80 mg Clopidogrel Bisulfate (Plavix) 75 mg PO DAILY [facility] Last Admin: 07/10/18 08:06 Dose: 75 mg Duloxetine HCl (Cymbalta) 40 mg PO DAILY [facility] Last Admin: 07/10/18 08:06 Dose: 40 mg Enoxaparin Sodium (Lovenox) 40 mg SC DAILY [facility]; Protocol Insulin Detemir (Levemir) 15 units SC HS [facility] Last Admin: 07/09/18 21:58 Dose: 15 units Insulin Human Lispro (Humalog) 0 units SC ACHS [facility]; Protocol Last Admin: 07/10/18 11:36 Dose: 4 units Lactulose (Enulose) 20 gm PO DAILY [facility] Last Admin: 07/10/18 08:06 Dose: 20 gm Metoprolol Succinate (Toprol Xl) 25 mg PO DAILY [facility] Last Admin: 07/10/18 08:06 Dose: 25 mg Pantoprazole Sodium (Protonix Susp) 40 mg PO 0600 [facility] Last Admin: 07/10/18 05:43 Dose: 40 mg Tamsulosin HCl (Flomax) 0.4 mg PO DAILY [facility] Last Admin: 07/10/18 08:06 Dose: 0.4 mg - Labs Labs: 07/10/18 12:01 07/10/18 12:01 - Constitutional Appears: No Acute Distress - Head Exam Head Exam: ATRAUMATIC - Eye Exam Eye Exam: absent: Scleral icterus - ENT Exam ENT Exam: Mucous Membranes Moist - Neck Exam Neck Exam: absent: Meningismus - Respiratory Exam Respiratory Exam: absent: Rales, Rhonchi, Wheezes, Respiratory Distress - Cardiovascular Exam Cardiovascular Exam: REGULAR RHYTHM, +S1, +S2 - GI/Abdominal Exam GI & Abdominal Exam: Soft. absent: Tenderness - Rectal Exam Rectal Exam: Deferred - Neurological Exam Neurological Exam: Alert, Oriented x3 - Psychiatric Exam Psychiatric exam: Flat Affect - Skin Skin Exam: Dry, Intact Assessment and Plan - Assessment and Plan (Free Text) Assessment: 88 yo female with history of HTN, HLD, Hypothyroid, DM2, Glaucoma, and previous colon cancer initially admitted for psychiatric issue at [facility] but was found to have right facial droop and shuffling gait. Imaging showed left basal ganglia infarct. 1. CVA (cerebral vascular accident) Continue ASA, Plavix, and Statin Dr Padron on physiatry consult continue PT/OT 2. DM2 BS controlled Levemir 15 units SC HS 3. Hypertension BP stable continue Metoprolol 4. Gait abnormality continue PT/OT 5. UTI/urinary retention completed 3 day course of Macrobid singleton catheter pulled out yesterday and has been able to urinate freely since then repat urinalysis 6. DVT prophylaxis on Lovenox 40mg SC daily
[2018-07-10 17:10] LABS: SQUAMOUS EPITHIAL 1 /hpf (0-5); URINE BACTERIA MOD (<OCC); URINE BILIRUBIN NEGATIVE (NEGATIVE); URINE BLOOD NEGATIVE (NEGATIVE); URINE CLARITY TURBID (Clear); URINE COLOR YELLOW (YELLOW); URINE GLUCOSE (UA) NEG (NEGATIVE); URINE LEUKOCYTE ESTERASE MOD Leu/uL (Negative); URINE PROTEIN >=500 mg/dL (NEGATIVE); URINE UROBILINOGEN 0.2-1.0 mg/dL (0.2-1.0); WBC CLUMPS MANY /hpf
[2018-07-10 17:11] LABS: GRANULAR CAST 1 /lpf (0-1); URINE HYALINE CAST 2 /hpf (0-2)
--- NOTE | 2018-07-10 17:44 | CP.PCM.PN ---
Subjective - Date & Time of Evaluation Date of Evaluation: 07/10/18 Time of Evaluation: 17:43 - Subjective Subjective: Patient seen in the room NAD no sob/cp no cyanosis or jaundice tolerating therapies continue current care Objective - Vital Signs/Intake and Output Vital Signs (last 24 hours): Temp Pulse Resp BP Pulse Ox 97.8 F 68 19 122/79 98 07/10/18 09:08 07/10/18 09:08 07/10/18 09:08 07/10/18 09:08 07/10/18 09:08 - Medications Medications: Current Medications Acetaminophen (Tylenol 325mg Tab) 650 mg PO Q6 PRN PRN Reason: TEMP>=99.5F Acetaminophen (Tylenol 650 Mg Supp) 650 mg RC Q6H PRN PRN Reason: TEMP>=99.5F Aspirin (Ecotrin) 81 mg PO DAILY [facility] Last Admin: 07/10/18 08:06 Dose: 81 mg Atorvastatin Calcium (Lipitor) 80 mg PO DIN [facility] Last Admin: 07/10/18 16:35 Dose: 80 mg Clopidogrel Bisulfate (Plavix) 75 mg PO DAILY [facility] Last Admin: 07/10/18 08:06 Dose: 75 mg Duloxetine HCl (Cymbalta) 40 mg PO DAILY [facility] Last Admin: 07/10/18 08:06 Dose: 40 mg Enoxaparin Sodium (Lovenox) 40 mg SC DAILY [facility]; Protocol Insulin Detemir (Levemir) 15 units SC HS [facility] Last Admin: 07/09/18 21:58 Dose: 15 units Insulin Human Lispro (Humalog) 0 units SC ACHS [facility]; Protocol Last Admin: 07/10/18 16:34 Dose: 6 units Lactulose (Enulose) 20 gm PO DAILY [facility] Last Admin: 07/10/18 08:06 Dose: 20 gm Metoprolol Succinate (Toprol Xl) 25 mg PO DAILY [facility] Last Admin: 07/10/18 08:06 Dose: 25 mg Pantoprazole Sodium (Protonix Susp) 40 mg PO 0600 [facility] Last Admin: 07/10/18 05:43 Dose: 40 mg Tamsulosin HCl (Flomax) 0.4 mg PO DAILY [facility] Last Admin: 07/10/18 08:06 Dose: 0.4 mg - Labs Labs: 07/10/18 12:01 07/10/18 12:01
[2018-07-10] MEDS: Insulin Detemir 100 Units/ml Inj SC SCH (21:07)
[2018-07-11] MEDS: Pantoprazole 40 mg Susp UD PO SCH (05:49)
[2018-07-11] MEDS: Insulin Lispro (humaLOG) 100 Units/ml Inj SC SCH ×4 (06:41→21:48)
[2018-07-11 07:18] LABS: HEMOGLOBIN 12.1 g/dL (12.0-16.0); MEAN CELL VOLUME 93.6 fl (81.0-99.0); MEAN CORPUSCULAR HEMOGLOBIN 31.9 pg (27.0-31.0); MEAN CORPUSCULAR HGB CONC 34.1 g/dL (33.0-37.0); RBC 3.78 Mil/uL (3.80-5.20); RED CELL DISTRIBUTION WIDTH 12.7 % (11.5-14.5); WHITE BLOOD COUNT 8.8 K/uL (4.8-10.8)
[2018-07-11 07:31] LABS: BLOOD UREA NITROGEN 19 mg/dl (7-17); GFR NON-AFRICAN AMERICAN > 60
[2018-07-11] MEDS: Enoxaparin 40 mg Syringe SC SCH (08:22)
[2018-07-11] MEDS: Metoprolol Succinate 25 mg XL Tab PO SCH (08:23)
[2018-07-11] MEDS: Sodium Chloride 0.9% 1,000 ML IV SCH (15:56)
[2018-07-11] MEDS: Insulin Detemir 100 Units/ml Inj SC SCH (21:48)
[2018-07-12] MEDS: Sodium Chloride 0.9% 1,000 ML IV SCH ×2 (03:02→12:00)
[2018-07-12] MEDS: Pantoprazole 40 mg Susp UD PO SCH (05:59)
[2018-07-12] MEDS: Insulin Lispro (humaLOG) 100 Units/ml Inj SC SCH ×4 (06:49→21:20)
[2018-07-12] MEDS: Metoprolol Succinate 25 mg XL Tab PO SCH (08:47)
[2018-07-12] MEDS: Enoxaparin 40 mg Syringe SC SCH (08:48)
--- NOTE | 2018-07-12 14:06 | CP.PCM.PN ---
Subjective - Date & Time of Evaluation Date of Evaluation: 07/12/18 Time of Evaluation: 13:30 - Subjective Subjective: Patient seen and examined. Denied any complaint Objective - Vital Signs/Intake and Output Vital Signs (last 24 hours): Temp Pulse Resp BP Pulse Ox 97.0 F L 64 19 130/65 95 07/12/18 08:41 07/12/18 08:47 07/12/18 08:41 07/12/18 08:47 07/12/18 08:41 Intake and Output: 07/12/18 07/12/18 06:59 18:59 Intake Total 1800 Output Total 600 Balance 1200 - Medications Medications: Current Medications Acetaminophen (Tylenol 325mg Tab) 650 mg PO Q6 PRN PRN Reason: TEMP>=99.5F Acetaminophen (Tylenol 650 Mg Supp) 650 mg RC Q6H PRN PRN Reason: TEMP>=99.5F Aspirin (Ecotrin) 81 mg PO DAILY [facility] Last Admin: 07/12/18 08:48 Dose: 81 mg Atorvastatin Calcium (Lipitor) 80 mg PO DIN [facility] Last Admin: 07/11/18 16:57 Dose: 80 mg Clopidogrel Bisulfate (Plavix) 75 mg PO DAILY [facility] Last Admin: 07/12/18 08:47 Dose: 75 mg Duloxetine HCl (Cymbalta) 40 mg PO DAILY [facility] Last Admin: 07/11/18 08:24 Dose: 40 mg Enoxaparin Sodium (Lovenox) 40 mg SC DAILY [facility]; Protocol Last Admin: 07/12/18 08:48 Dose: 40 mg Sodium Chloride (Sodium Chloride 0.9%) 1,000 mls @ 100 mls/hr IV .Q10H [facility] Stop: 07/12/18 15:49 Last Admin: 07/12/18 03:02 Dose: 100 mls/hr Ceftriaxone Sodium 1 gm/ (Sodium Chloride) 100 mls @ 100 mls/hr IVPB DAILY@0600 [facility]; Protocol Last Admin: 07/12/18 06:01 Dose: 100 mls/hr Insulin Detemir (Levemir) 15 units SC HS [facility] Last Admin: 07/11/18 21:48 Dose: 15 units Insulin Human Lispro (Humalog) 0 units SC ACHS [facility]; Protocol Last Admin: 07/12/18 06:49 Dose: 2 units Lactulose (Enulose) 20 gm PO DAILY [facility] Last Admin: 07/12/18 08:48 Dose: 20 gm Metoprolol Succinate (Toprol Xl) 25 mg PO DAILY [facility] Last Admin: 07/12/18 08:47 Dose: 25 mg Pantoprazole Sodium (Protonix Susp) 40 mg PO 0600 [facility] Last Admin: 07/12/18 05:59 Dose: 40 mg Tamsulosin HCl (Flomax) 0.4 mg PO DAILY [facility] Last Admin: 07/12/18 08:47 Dose: 0.4 mg - Labs Labs: 07/11/18 06:15 07/11/18 06:15 - Constitutional Appears: No Acute Distress - Head Exam Head Exam: ATRAUMATIC - Eye Exam Eye Exam: absent: Scleral icterus - ENT Exam ENT Exam: Mucous Membranes Moist - Neck Exam Neck Exam: absent: Meningismus - Respiratory Exam Respiratory Exam: absent: Rales, Rhonchi, Wheezes, Respiratory Distress - Cardiovascular Exam Cardiovascular Exam: REGULAR RHYTHM, +S1, +S2 - GI/Abdominal Exam GI & Abdominal Exam: Soft. absent: Tenderness - Rectal Exam Rectal Exam: Deferred - Neurological Exam Neurological Exam: Alert, Oriented x3 - Psychiatric Exam Psychiatric exam: Normal Affect - Skin Skin Exam: Dry, Intact Assessment and Plan - Assessment and Plan (Free Text) Assessment: 88 yo female with history of HTN, HLD, Hypothyroid, DM2, Glaucoma, and previous colon cancer initially admitted for psychiatric issue at [facility] [place] but was found to h ave right facial droop and shuffling gait. Imaging showed left basal ganglia infarct. 1. CVA (cerebral vascular accident) Continue ASA, Plavix, and Statin Dr Padron on physiatry consult continue PT/OT 2. DM2 BS relatively controlled Levemir 15 units SC HS 3. Hypertension BP stable continue Metoprolol 4. Gait abnormality continue PT/OT 5. UTI/urinary retention had 3 day of Macrobid but still complaining of some dysuria repeat urinalysis positive for UTI with moderate leukocyte esterase urine culture grew gram negative rods follow up final report of culture and sensitivity continue IV Rocephin 6. DVT prophylaxis on Lovenox 40mg SC daily
[2018-07-12 16:01] LABS: BLOOD UREA NITROGEN 18 mg/dl (7-17); CALCIUM 9.1 mg/dL (8.4-10.2); GFR NON-AFRICAN AMERICAN > 60
[2018-07-12] MEDS: Insulin Detemir 100 Units/ml Inj SC SCH (21:23)
[2018-07-13] MEDS: Pantoprazole 40 mg Susp UD PO SCH (05:26)
[2018-07-13] MEDS: Insulin Lispro (humaLOG) 100 Units/ml Inj SC SCH ×4 (06:31→21:23)
[2018-07-13] MEDS: Enoxaparin 40 mg Syringe SC SCH (08:54)
[2018-07-13] MEDS: Metoprolol Succinate 25 mg XL Tab PO SCH (08:55)
--- NOTE | 2018-07-13 12:01 | CP.PCM.PN ---
Subjective - Date & Time of Evaluation Date of Evaluation: 07/13/18 Time of Evaluation: 11:59 - Subjective Subjective: Chelsie Martinez, born 1930, who has been admitted to [facility] acute inpatient rehabilitation following [place] [facility] [place] right facial droop and weakness. Work up revealed a left BG infarct. 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 Right hand dominant. She has continued dysuria that did not resolve with PO anti-biotics and has now been placed on IV ABX. She is a little more subdued than usual. Objective - Vital Signs/Intake and Output Vital Signs (last 24 hours): Temp Pulse Resp BP Pulse Ox 98.1 F 60 20 145/70 95 07/13/18 07:30 07/13/18 08:55 07/13/18 07:30 07/13/18 08:55 07/13/18 07:30 Intake and Output: 07/13/18 07/13/18 06:59 18:59 Intake Total 400 Output Total 1100 Balance -700 - Medications Medications: Current Medications Acetaminophen (Tylenol 325mg Tab) 650 mg PO Q6 PRN PRN Reason: TEMP>=99.5F Acetaminophen (Tylenol 650 Mg Supp) 650 mg RC Q6H PRN PRN Reason: TEMP>=99.5F Aspirin (Ecotrin) 81 mg PO DAILY [facility] Last Admin: 07/13/18 08:55 Dose: 81 mg Atorvastatin Calcium (Lipitor) 80 mg PO DIN [facility] Last Admin: 07/12/18 16:47 Dose: 80 mg Clopidogrel Bisulfate (Plavix) 75 mg PO DAILY [facility] Last Admin: 07/13/18 08:55 Dose: 75 mg Duloxetine HCl (Cymbalta) 40 mg PO DAILY [facility] Last Admin: 07/13/18 08:56 Dose: 40 mg Enoxaparin Sodium (Lovenox) 40 mg SC DAILY [facility]; Protocol Last Admin: 07/13/18 08:54 Dose: 40 mg Ceftriaxone Sodium 1 gm/ (Sodium Chloride) 100 mls @ 100 mls/hr IVPB DAILY@0600 [facility]; Protocol Last Admin: 07/13/18 05:27 Dose: 100 mls/hr Insulin Detemir (Levemir) 15 units SC [facility] Last Admin: 07/12/18 21:23 Dose: 15 units Insulin Human Lispro (Humalog) 0 units SC ACHS [facility]; Protocol Last Admin: 07/13/18 06:31 Dose: Not Given Lactulose (Enulose) 20 gm PO DAILY [facility] Last Admin: 07/13/18 08:56 Dose: 20 gm Metoprolol Succinate (Toprol Xl) 25 mg PO DAILY [facility] Last Admin: 07/13/18 08:55 Dose: 25 mg Pantoprazole Sodium (Protonix Susp) 40 mg PO 0600 [facility] Last Admin: 07/13/18 05:26 Dose: 40 mg Tamsulosin HCl (Flomax) 0.4 mg PO DAILY [facility] Last Admin: 07/13/18 08:55 Dose: 0.4 mg - Labs Labs: 07/11/18 06:15 07/12/18 15:20 - Constitutional Appears: No Acute Distress - Head Exam Head Exam: ATRAUMATIC, NORMAL INSPECTION, NORMOCEPHALIC - Eye Exam Eye Exam: EOMI - ENT Exam ENT Exam: Mucous Membranes Moist - Respiratory Exam Respiratory Exam: NORMAL BREATHING PATTERN - Neurological Exam Neurological Exam: Alert, Awake - Psychiatric Exam Psychiatric exam: Flat Affect - Skin Skin Exam: Warm Assessment and Plan - Assessment and Plan (Free Text) Assessment: Chelsie Martinez, born 1930, who has been admitted to [facility] acute inpatient rehabilitation following an [place] [facility] with right facial droop and weakness. Work up revealed a left BG infarct. 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 Right hand dominant. PT/OT to continue to help increase functional independence Team conference for d/c planning Pain: controlled Vascular: no evidence of DVT on [facility] GI: No evidence of constipation or diarrhea ID: Continue with IV ABX for UTI Endo: continue medication for DM Patient continues to be an excellent acute rehabilitation candidate and will have continued focused speech, PT, OT and recreational therapy to help facilitate a safe and appropriate d/c plan
[2018-07-13] MEDS: Insulin Detemir 100 Units/ml Inj SC SCH (21:24)
[2018-07-14] MEDS: Ciprofloxacin 400mg/200ml D5W 400 MG/200 ML BAG IVPB SCH ×2 (04:35→16:02)
[2018-07-14 05:34] LABS: HEMOGLOBIN 11.6 g/dL (12.0-16.0); MEAN CELL VOLUME 93.1 fl (81.0-99.0); MEAN CORPUSCULAR HEMOGLOBIN 31.8 pg (27.0-31.0); MEAN CORPUSCULAR HGB CONC 34.1 g/dL (33.0-37.0); RBC 3.64 Mil/uL (3.80-5.20); RED CELL DISTRIBUTION WIDTH 12.5 % (11.5-14.5); WHITE BLOOD COUNT 7.2 K/uL (4.8-10.8)
[2018-07-14 05:45] LABS: BLOOD UREA NITROGEN 16 mg/dl (7-17); CALCIUM 9.1 mg/dL (8.4-10.2); GFR NON-AFRICAN AMERICAN > 60
[2018-07-14] MEDS: Pantoprazole 40 mg Susp UD PO SCH (06:29)
[2018-07-14] MEDS: Insulin Lispro (humaLOG) 100 Units/ml Inj SC SCH ×4 (06:30→21:34)
[2018-07-14] MEDS ORDERED: Ciprofloxacin 400mg/200ml D5W 400 MG/200 ML BAG IVPB SCH (09:00)
[2018-07-14] MEDS: Enoxaparin 40 mg Syringe SC SCH (09:02)
[2018-07-14] MEDS: Metoprolol Succinate 25 mg XL Tab PO SCH (09:02)
[2018-07-14] MEDS: Lactobacillus Acidophilus 500 MU Cap PO SCH (16:08)
[2018-07-14] MEDS: Insulin Detemir 100 Units/ml Inj SC SCH (21:33)
[2018-07-15] MEDS: Ciprofloxacin 400mg/200ml D5W 400 MG/200 ML BAG IVPB SCH ×2 (04:08→17:00)
[2018-07-15] MEDS: Pantoprazole 40 mg Susp UD PO SCH (06:45)
[2018-07-15] MEDS: Insulin Lispro (humaLOG) 100 Units/ml Inj SC SCH ×5 (06:53→21:31)
[2018-07-15] MEDS: Enoxaparin 40 mg Syringe SC SCH (09:20)
[2018-07-15] MEDS: Metoprolol Succinate 25 mg XL Tab PO SCH (09:20)
[2018-07-15] MEDS: Lactobacillus Acidophilus 500 MU Cap PO SCH ×2 (12:40→17:00)
--- NOTE | 2018-07-15 15:35 | CP.PCM.PN ---
Subjective - Date & Time of Evaluation Date of Evaluation: 07/15/18 Time of Evaluation: 14:00 - Subjective Subjective: Patient seen and examined. Denied dysuria or any other complaint. Objective - Vital Signs/Intake and Output Vital Signs (last 24 hours): Temp Pulse Resp BP Pulse Ox 97.6 F 58 L 21 132/68 96 07/15/18 09:34 07/15/18 09:34 07/15/18 09:34 07/15/18 09:34 07/15/18 09:34 Intake and Output: 07/15/18 07/15/18 06:59 18:59 Intake Total 520 Balance 520 - Medications Medications: Current Medications Acetaminophen (Tylenol 325mg Tab) 650 mg PO Q6 PRN PRN Reason: TEMP>=99.5F Acetaminophen (Tylenol 650 Mg Supp) 650 mg RC Q6H PRN PRN Reason: TEMP>=99.5F Aspirin (Ecotrin) 81 mg PO DAILY [facility] Last Admin: 07/15/18 09:19 Dose: 81 mg Atorvastatin Calcium (Lipitor) 80 mg PO DIN [facility] Last Admin: 07/14/18 16:03 Dose: 80 mg Clopidogrel Bisulfate (Plavix) 75 mg PO DAILY [facility] Last Admin: 07/15/18 09:23 Dose: 75 mg Duloxetine HCl (Cymbalta) 40 mg PO DAILY [facility] Last Admin: 07/15/18 09:19 Dose: 40 mg Enoxaparin Sodium (Lovenox) 40 mg SC DAILY [facility]; Protocol Last Admin: 07/15/18 09:20 Dose: 40 mg Ciprofloxacin (Cipro 400mg/200ml Dsw) 400 mg in 200 mls @ 200 mls/hr IVPB Q12H [facility]; Protocol Last Admin: 07/15/18 04:08 Dose: 200 mls/hr Insulin Detemir (Levemir) 15 units SC HS [facility] Last Admin: 07/14/18 21:33 Dose: 15 units Insulin Human Lispro (Humalog) 0 units SC [facility]; Protocol Last Admin: 07/15/18 12:40 Dose: 3 units Lactobacillus Acidophilus (Bacid Acidophilus) 1 cap PO BID [facility] Last Admin: 07/15/18 12:40 Dose: 1 cap Lactulose (Enulose) 20 gm PO DAILY [facility] Last Admin: 07/15/18 09:19 Dose: Not Given Metoprolol Succinate (Toprol Xl) 25 mg PO DAILY [facility] Last Admin: 07/15/18 09:20 Dose: 25 mg Pantoprazole Sodium (Protonix Susp) 40 mg PO 0600 [facility] Last Admin: 07/15/18 06:45 Dose: 40 mg Tamsulosin HCl (Flomax) 0.4 mg PO DAILY [facility] Last Admin: 07/15/18 09:19 Dose: 0.4 mg - Labs Labs: 07/14/18 05:00 07/14/18 05:29 - Constitutional Appears: No Acute Distress - Head Exam Head Exam: ATRAUMATIC - Eye Exam Eye Exam: absent: Scleral icterus - ENT Exam ENT Exam: Mucous Membranes Moist - Neck Exam Neck Exam: absent: Meningismus - Respiratory Exam Respiratory Exam: absent: Rales, Rhonchi, Wheezes, Respiratory Distress - Cardiovascular Exam Cardiovascular Exam: REGULAR RHYTHM, +S1, +S2 - GI/Abdominal Exam GI & Abdominal Exam: Soft. absent: Tenderness - Rectal Exam Rectal Exam: Deferred - Neurological Exam Neurological Exam: Alert, Oriented x3 - Psychiatric Exam Psychiatric exam: Normal Affect - Skin Skin Exam: Dry, Intact Assessment and Plan - Assessment and Plan (Free Text) Plan: 88 yo female with history of HTN, HLD, Hypothyroid, DM2, Glaucoma, and previous colon cancer initially admitted for psychiatric issue [place] [facility] but was found to have right facial droop and shuffling gait. Imaging showed left basal ganglia infarct. 1. CVA (cerebral vascular accident) Continue ASA, Plavix, and Statin Dr Padron on physiatry consult improving with PT/OT 2. DM2 BS relatively controlled Levemir 15 units SC HS 3. Hypertension BP stable continue Metoprolol 4. Gait abnormality continue PT/OT 5. UTI/urinary retention denied dysuria urine culture grew Proteus Mirabilis sensitive to Cipro continue IV Cipro 400mg q 12hrs repeat urinalysis 6. DVT prophylaxis on Lovenox 40mg SC daily
--- NOTE | 2018-07-15 17:22 | CP.PCM.PN ---
Subjective - Date & Time of Evaluation Date of Evaluation: 07/15/18 Time of Evaluation: 17:22 - Subjective Subjective: Patient seen in the room no calf swelling or tenderness set for d/c to [facility] 07/21/18 remains motivated but slow progress continue current care Objective - Vital Signs/Intake and Output Vital Signs (last 24 hours): Temp Pulse Resp BP Pulse Ox 97.6 F 58 L 21 132/68 96 07/15/18 09:34 07/15/18 09:34 07/15/18 09:34 07/15/18 09:34 07/15/18 09:34 Intake and Output: 07/15/18 07/15/18 06:59 18:59 Intake Total 520 Balance 520 - Medications Medications: Current Medications Acetaminophen (Tylenol 325mg Tab) 650 mg PO Q6 PRN PRN Reason: TEMP>=99.5F Acetaminophen (Tylenol 650 Mg Supp) 650 mg RC Q6H PRN PRN Reason: TEMP>=99.5F Aspirin (Ecotrin) 81 mg PO DAILY [facility] Last Admin: 07/15/18 09:19 Dose: 81 mg Atorvastatin Calcium (Lipitor) 80 mg PO DIN [facility] Last Admin: 07/15/18 17:01 Dose: 80 mg Clopidogrel Bisulfate (Plavix) 75 mg PO DAILY [facility] Last Admin: 07/15/18 09:23 Dose: 75 mg Duloxetine HCl (Cymbalta) 40 mg PO DAILY [facility] Last Admin: 07/15/18 09:19 Dose: 40 mg Enoxaparin Sodium (Lovenox) 40 mg SC DAILY [facility]; Protocol Last Admin: 07/15/18 09:20 Dose: 40 mg Ciprofloxacin (Cipro 400mg/200ml Dsw) 400 mg in 200 mls @ 200 mls/hr IVPB Q12H [facility]; Protocol Last Admin: 07/15/18 17:00 Dose: 200 mls/hr Insulin Detemir (Levemir) 15 units SC HS [facility] Last Admin: 07/14/18 21:33 Dose: 15 units Insulin Human Lispro (Humalog) 0 units SC ACHS [facility]; Protocol Last Admin: 07/15/18 17:01 Dose: 6 units Lactobacillus Acidophilus (Bacid Acidophilus) 1 cap PO BID [facility] Last Admin: 07/15/18 17:00 Dose: 1 cap Lactulose (Enulose) 20 gm PO DAILY [facility] Last Admin: 07/15/18 09:19 Dose: Not Given Metoprolol Succinate (Toprol Xl) 25 mg PO DAILY [facility] Last Admin: 07/15/18 09:20 Dose: 25 mg Pantoprazole Sodium (Protonix Susp) 40 mg PO 0600 [facility] Last Admin: 07/15/18 06:45 Dose: 40 mg Tamsulosin HCl (Flomax) 0.4 mg PO DAILY [facility] Last Admin: 07/15/18 09:19 Dose: 0.4 mg - Labs Labs: 07/14/18 05:00 07/14/18 05:29
[2018-07-15] MEDS: Insulin Detemir 100 Units/ml Inj SC SCH (21:32)
[2018-07-16] MEDS: Ciprofloxacin 400mg/200ml D5W 400 MG/200 ML BAG IVPB SCH ×2 (04:22→15:55)
[2018-07-16] MEDS: Pantoprazole 40 mg Susp UD PO SCH (05:24)
[2018-07-16] MEDS: Insulin Lispro (humaLOG) 100 Units/ml Inj SC SCH ×4 (06:58→21:28)
[2018-07-16 08:28] LABS: URINE BACTERIA RARE (<OCC); URINE BILIRUBIN NEGATIVE (NEGATIVE); URINE BLOOD LARGE (NEGATIVE); URINE CLARITY CLOUDY (Clear); URINE COLOR AMBER (YELLOW); URINE GLUCOSE (UA) NEG (NEGATIVE); URINE LEUKOCYTE ESTERASE NEG Leu/uL (Negative); URINE PROTEIN 100 mg/dL (NEGATIVE); URINE UROBILINOGEN 0.2-1.0 mg/dL (0.2-1.0)
[2018-07-16] MEDS: Lactobacillus Acidophilus 500 MU Cap PO SCH ×2 (09:44→17:07)
[2018-07-16] MEDS: Enoxaparin 40 mg Syringe SC SCH (09:44)
[2018-07-16] MEDS: Metoprolol Succinate 25 mg XL Tab PO SCH (09:45)
--- NOTE | 2018-07-16 13:10 | PCM.PSYTMC ---
Acute Rehab Team Conference - - Vital Signs: Vital Signs (Last 8 Hours): Vital Signs 07/16/18 07/16/18 08:12 09:45 Temperature 97.1 F L Pulse Rate 67 67 Respiratory 19 Rate Blood Pressure 149/67 149/67 O2 Sat by Pulse 98 Oximetry Pain: 0 - Precautions: Precautions: Fall Prevention - Medications/Other Issues: Comment: -Urinary retention. With singleton catheter Fr. 16. Will discontinue ca theter tomorrow for trial. Will restart bladder scanning again tomorrow. -On finely-chopped diet and nectar thickened liquids. Keep aspiration precautions. -Slurred speech and generalized weakness. - Consults: Comment: Dr. Padron - Physiatry. Dr. Juarez - Urology - Skin: Incision Site: n/a - Toileting: Toileting: Moderate Assistance - Bladder Management: Bladder Pattern: Incontinent Voiding Method: Toilet Bladder Management: Moderate Assistance Other Intervention:: Continent of urine during day. Urinary accidents during the night time hours.Purewick while in bed at night to decrease incidences of urinary incontinence. - Transfers: Transfers: Moderate Assistance - ADL's: ADL's: Moderate Assistance - Pain Management: Other Intervention:: assess prn for pain - Patient/Family Teaching: Other Intervention:: -Teach patient about urinary retention, stroke, and s/s of stroke. -Teach infection prevention. - Goals/Time Frame: Comment: Continue Plan of Care as noted - Provider: Registered Nurse:: Yazmin Hector Physical Therapy - Bed Mobility Bed Mobility: Verbal Cues, Minimal Assistance, Moderate Assistance Comment: rolling min. bed mob mod A. mod vc/tc for sequenicng and safety. level of assist continues to fluctuate - Transfers Wheelchair to Mat: Verbal Cues, Moderate Assistance Sit to Stand: Verbal Cues, Moderate Assistance Comment: mod vc/tc for bed mob and t/f (sequencing and safety). Pt needed max tc/vc at times for hand placement prior to standing up. level of assist for t/f continues to fluctuate - Ambulation Level of Assistance: Verbal Cues, Minimal Assistance, Moderate Assistance Distance (ft.): 200 Assistive Devices: Rolling Walker Comment: x2 w/ w/c follow. vc/tc for upright posture, B heel strike (R > L), incr step length, incr SIENA, remain inside frame of RW. unsteady, intermittent difficulty advancing RLE. difficulty navigating turns and obstacles. Improved stability noted w/ incr'd step length - Stair Negotiation Stairs: Level of Assistance: Verbal Cues, Moderate Assistance Number of Stairs: 3 Stairs: Assistive Devices: Left Handrail, Right Handrail Comment: 4 in steps, step to pattern w/ SBA x1. max vc/tc for sequencing and safety, melanie w/ advancing BUE along HRs. step to pattern. Pt w/ difficulty turning at top of stairs - Standing Balance Static Stand: Minimal Assistance Comment: w/ RW - Pain Pain (assessed during therapy session): 0 Comment: N/A - Insight/Carryover Insight/Carryover: Fair - Patient/Family Education Comment: fxnl mob, balance, safety, DME, posture, PT goals, benefits of PT, CVA recovery related topics - Assessment/Plan Assessment: 88 year old female admitted to [facility] acute rehab s/p acute L basal ganglia/lal radiata CVA. Pt presents w/ improving strength, ROM, postural control, motor planning, initiation, coordination, balance and activity tolerance. Pt requires mod assistance with transfers and min/mod A for bed mobility and RW amb at this time. Please note pt's level of assist continues to fluctuate for all fxnl mob. Cont'd skilled PT recommended to address deficits. - Goals Timeframe: 3 weeks Goals: asc/desc 1 flight of steps with min A with single rail. CG x 250 feet with RW. CG with transfers with RW. supervision with bed/mat mobility - Provider Physical Therapist:: Diandra Albrecht License Number:: [id number] Occupational Therapy - Arousal/Attention/Orientation Level of Consciousness: Awake, Alert, Forgetful Patient Orientation: Person, Place - ADL/IADL Self Feeding: Supervision, Set-up Help Grooming: Supervision, Set-up Help Bathing-Upper Ext: Set-up Help, Minimal Assistance Bathing-Lower Ext: Verbal Cues, Set-up Help, Minimal Assistance Dressing-Upper Ext: Supervision Dressing-Lower Ext: Minimal Assistance, Moderate Assistance Homemaking: Dependent - Sitting Balance Static Sitting: Independent without upper extremity support Dynamic Sitting: Reaches out of base of support, Requires supervision - Transfers Wheelchair to Bed Transfers: Minimal Assistance, Moderate Assistance Toilet Transfers: Verbal Cues, Minimal Assistance, Moderate Assistance Tub Transfers: Moderate Assistance Comment: transfers vary from min-mod A - Wheelchair Management Level of Assistance: Minimal Assistance Distance (ft.): 150 - Upper Extremity Status Right Upper Extremity Comment: AROM is WFLs; strength 3-/5 in shoulder and 3/5. impaired gross/fine motor cooordination and dexterity Left Upper Extremity Comment: AROM WFLs - Pain Pain (assessed during therapy session): 0 - Insight/Carryover Insight/Carryover: Fair - Patient/Family Education Comment: CVA recovery, dme/ae education, energy conservation, role of OT, therapy schedue - Assessment/Plan Assessment: Pt is a 88 year old female with dx: acute CVA. Precautions: aspiration precautions(nectar/purree), falls(bed/w/c alarm), cardiac, + bladder /bowel incontinence. Pt limited by impaired R eye vision(blind), impaired RUE gross/fine motor function/AROM, impaired standing balance/tolerance, impaired endurance/activity tolerance, impaired cognition(memory, insight,judgement, problem-solving, sequencing, safety awareness. patient is doing well and progressing towards set goals--however poor carryover and impaired problem solving cont to be a big barrier to progress. patient is able to perform ub adls with overall supervision and lb dressing/bathing with min-mod A using lb ae.transfers vary from min-mod A. recommend a D/C to [facility] post IP stay - Goals Timeframe: 1 week - Provider Occupational Therapist:: Courtney Cornell License Number: [id number] Speech Therapy - Consult Information Patient on Program: Yes Medical Diagnosis: CVA Treatment Diagnosis: -moderate dysarthria. -mild expressive language deficits. -mild-moderate dysphagia - Assessment Expressive Language Impairment: Mild Speech/Articulation Impairment: Moderate Dysphagia/Swallowing Impairment: Moderate Comment: mild-moderate - Plan Assessment: Chelsie Martinez presents with 1.) moderate dysarthria characterized by R facial weakness, impaired respiration for phonation, low vocal volume with hoarse vocal quality with low volume, and impaired articulatory precision, all negatively impacting speech intelligibility; 2.) mild-moderate expressive aphasia characterized by impaired word retrieval and sentence formation/thought organization to effectively communicate wants/needs/ideas; and 3.) mild-moderate oral and suspected pharyngeal dysphagia characterized by R oral motor weakness with impaired labial seal with intermittent anterior spillage with large volume of liquids, min-mild R oral pocketing (though pt generally clears independently), prolonged mastication and A-P transit time for solids, impaired bolus control of thin liquids with suspected premature spillage, reduced laryngeal elevation, and intermittent coughing with thin liquids. Pt has been demonstrating improved tolerance of advanced consistencies in tx; she presents with much improved tolerance of thin liquids with use of chin tuck, though continues to require cues for appropriate chin tuck posture. She also presents with improved oral swallow for bite-sized solids, though pt requested to remain on finely chopped secondary to not having her dentures in the hospital. Therefore, recommend maintenance of finely chopped solids and nectar thick liquids; maintain aspiration precautions. Pt also presents with improved speech intelligibility at the word/phrase level with use of compensatory speech strategies in structured tx tasks, though with inconsistent carryover into spontaneous speech. Pt would benefit from continued speech and dysphagia tx 3- 5x/week for improved swallow function and safety for PO intake and improved communicative effectiveness. Plan: Continue Dysphagia Therapy, Continue Speech/Language Therapy Frequency: 3-5 times per week Duration: 1 week Goals/Timeframe: Please see progress note dated 07/15/18 for updated goals/POC Recommendations: -Continue speech and dysphagia tx 3-5x/week. -Maintain finely chopped solids/nectar thick liquids - Provider Therapist: Angelia Zambrano License Number: [id number] Recreational Therapy - Participation Participation: Participates in Individual and/or Group Sessions - Attendance Attendance: 3-5 times per week - Activities Leisure Activities: Cards and Games - Socialization Level of Socialization: Initiates/interacts with caregivers but not with peer, Isolate by choice, Responds freely, but does not initiate, Requires 1:1 guidance to respond - Diversional Time Diversional Time: cards - Assessment Assessment/Plan: Pt continues to be agreeable to participate in 1:1 and group recreation therapy sessions offered on unit. Pt participates in direction following and sequencing related leisure tasks to improve initiation. Pt requires increase of assistance during sessions requiring min-mod A 2' poor carryover of task rules. Pt presents with decrease initiation and sequencing commands. Pt will require mod verbal cues for redirection to task and for turn taking. Pt's visual deficits are barriers to participation. Pt will continue to benefit from participating in recreation therapy sessions throughout stay on unit. Problems Currently Limiting Participation: decrease direction following, impaired motor planning, decrease initiation, decrease leisure awareness level Goals and Time Frame: Pt will be encouraged to participate in 1:1 and group recreation therapy sessions to improve direction following, leisure awareness level, attention to task, and overall mood state. - Provider Therapist: Payton Gutierrez Nutrition - Current Diet Current Diet/Supplement/Feedings: 1) Mech altered (Finely Chopped), [place] thick liquids, Heart Healthy, Moderate Consistent Carbohydrate. 2) Ensure Pudding BID (340kcal, 8g pro) - Appetite Percent Meal Consumed: 75-100% - Assessment/Goals/Time Frame Assessments/Goals/Time Frame: 1. Pt to consume 75-100% of meals- met, continue. 2. Blood glucoses to be between 70-180 mg/dl- partially met, continue. For follow up by 07/17/2018 - Provider Provider: Bryant Boyd Case Management - Psychosocial Assessment Support Systems: Patient has no family, but has friends who have been involved and assiting her (i.e., with paying bills). Psychological Interventions/Needs: Patient is AAO and slightly forgetful. Discharge Concerns: Patient has no family to assist with moving her personal belongings from her home to [facility] where she made her own arrangements to be admitted. Patient will also be needing [facility] at [facility]. Patient/Family Meeting: CM met with shena and rehab team. Intervention/Goal/Outcome: 1. Goal: 24 hr supervision/care 2. Plan: [facility] at [facility] followed by [facility] 3. arrange for transport to [facility] 4. confirm patient's arrangements for her personal belongings - Discharge Plan Discharge Plan: Subacute care - Provider Provider: Deb Meza License Number: [id number] Rehabilitation Plan - Treatment Plan Treatment Plan: Physical Therapy, Occupational Therapy, Speech, Dietary, Patient/Family Education - Discharge Plan Estimated Date of Discharge: 07/21/18 Discharge to: Subacute
--- NOTE | 2018-07-16 13:40 | CP.PCM.PN ---
Subjective - Date & Time of Evaluation Date of Evaluation: 07/16/18 Time of Evaluation: 13:39 - Subjective Subjective: patient seen in the room doing well decrease in dysuria denies sob/cp improved ambulation but still with motor planning issues that affect safety continue current care Objective - Vital Signs/Intake and Output Vital Signs (last 24 hours): Temp Pulse Resp BP Pulse Ox 97.1 F L 67 19 149/67 98 07/16/18 08:12 07/16/18 09:45 07/16/18 08:12 07/16/18 09:45 07/16/18 08:12 Intake and Output: 07/16/18 07/16/18 06:59 18:59 Intake Total 500 Output Total 1050 Balance -550 - Medications Medications: Current Medications Acetaminophen (Tylenol 325mg Tab) 650 mg PO Q6 PRN PRN Reason: TEMP>=99.5F Acetaminophen (Tylenol 650 Mg Supp) 650 mg RC Q6H PRN PRN Reason: TEMP>=99.5F Aspirin (Ecotrin) 81 mg PO DAILY [facility] Last Admin: 07/16/18 09:45 Dose: 81 mg Atorvastatin Calcium (Lipitor) 80 mg PO DIN [facility] Last Admin: 07/15/18 17:01 Dose: 80 mg Clopidogrel Bisulfate (Plavix) 75 mg PO DAILY [facility] Last Admin: 07/16/18 09:44 Dose: 75 mg Duloxetine HCl (Cymbalta) 40 mg PO DAILY [facility] Last Admin: 07/16/18 09:46 Dose: 40 mg Enoxaparin Sodium (Lovenox) 40 mg SC DAILY [facility]; Protocol Last Admin: 07/16/18 09:44 Dose: 40 mg Ciprofloxacin (Cipro 400mg/200ml Dsw) 400 mg in 200 mls @ 200 mls/hr IVPB Q12H [facility]; Protocol Last Admin: 07/16/18 04:22 Dose: 200 mls/hr Insulin Detemir (Levemir) 15 units SC HS [facility] Last Admin: 07/15/18 21:32 Dose: 15 units Insulin Human Lispro (Humalog) 0 units SC ACHS [facility]; Protocol Last Admin: 07/16/18 12:23 Dose: 4 units Lactobacillus Acidophilus (Bacid Acidophilus) 1 cap PO BID [facility] Last Admin: 07/16/18 09:44 Dose: 1 cap Lactulose (Enulose) 20 gm PO DAILY [facility] Last Admin: 07/16/18 09:47 Dose: Not Given Metoprolol Succinate (Toprol Xl) 25 mg PO DAILY [facility] Last Admin: 07/16/18 09:45 Dose: 25 mg Pantoprazole Sodium (Protonix Susp) 40 mg PO 0600 [facility] Last Admin: 07/16/18 05:24 Dose: 40 mg Tamsulosin HCl (Flomax) 0.4 mg PO DAILY [facility] Last Admin: 07/16/18 09:47 Dose: 0.4 mg - Labs Labs: 07/14/18 05:00 07/14/18 05:29
[2018-07-16] MEDS: Insulin Detemir 100 Units/ml Inj SC SCH (21:29)
[2018-07-17] MEDS: Ciprofloxacin 400mg/200ml D5W 400 MG/200 ML BAG IVPB SCH (04:13)
[2018-07-17] MEDS: Pantoprazole 40 mg Susp UD PO SCH (05:38)
[2018-07-17 06:19] LABS: HEMOGLOBIN 11.9 g/dL (12.0-16.0); MEAN CELL VOLUME 93.7 fl (81.0-99.0); MEAN CORPUSCULAR HEMOGLOBIN 32.3 pg (27.0-31.0); MEAN CORPUSCULAR HGB CONC 34.4 g/dL (33.0-37.0); RBC 3.69 Mil/uL (3.80-5.20); RED CELL DISTRIBUTION WIDTH 12.6 % (11.5-14.5); WHITE BLOOD COUNT 7.4 K/uL (4.8-10.8)
[2018-07-17 06:30] LABS: BLOOD UREA NITROGEN 17 mg/dl (7-17)
[2018-07-17 06:35] LABS: CALCIUM 9.2 mg/dL (8.4-10.2); GFR NON-AFRICAN AMERICAN > 60
[2018-07-17] MEDS: Insulin Lispro (humaLOG) 100 Units/ml Inj SC SCH ×4 (07:05→21:38)
[2018-07-17] MEDS: Lactobacillus Acidophilus 500 MU Cap PO SCH ×2 (08:54→16:13)
[2018-07-17] MEDS: Metoprolol Succinate 25 mg XL Tab PO SCH (08:56)
[2018-07-17] MEDS: Enoxaparin 40 mg Syringe SC SCH (08:56)
[2018-07-17 10:59] LABS: BLOOD UREA NITROGEN 16 mg/dl (7-17); CALCIUM 9.2 mg/dL (8.4-10.2); GFR NON-AFRICAN AMERICAN > 60
--- NOTE | 2018-07-17 11:33 | CP.PCM.PN ---
Subjective - Date & Time of Evaluation Date of Evaluation: 07/17/18 Time of Evaluation: 11:32 - Subjective Subjective: pt noted to be more lethargic this morning antibiotics for UTI changed to TMPSMX from CIPRO. complete 3 more days. hd stable nad Objective - Vital Signs/Intake and Output Vital Signs (last 24 hours): Temp Pulse Resp BP Pulse Ox 98.1 F 70 18 117/57 L 94 L 07/17/18 09:20 07/17/18 09:40 07/17/18 09:20 07/17/18 09:20 07/17/18 09:20 Vitals Reviewed GEN: WDWN, slightly more lethargic today cooperative HEENT: NCAT, PERRL, EOMI HEART: RRR, +S1S2, NO MRG LUNG: CTAB, NO WRR ABD: soft, NT, ND, No HSM, No masses EXT: normal pedal pulses NEURO: awake, alert SKIN: warm, dry PSYCH: normal mood, normal affect Intake and Output: 07/17/18 07/17/18 06:59 18:59 Intake Total 400 Output Total 850 Balance -450 - Medications Medications: Current Medications Acetaminophen (Tylenol 325mg Tab) 650 mg PO Q6 PRN PRN Reason: TEMP>=99.5F Acetaminophen (Tylenol 650 Mg Supp) 650 mg RC Q6H PRN PRN Reason: TEMP>=99.5F Aspirin (Ecotrin) 81 mg PO DAILY [facility] Last Admin: 07/17/18 08:56 Dose: 81 mg Atorvastatin Calcium (Lipitor) 80 mg PO DIN [facility] Last Admin: 07/16/18 17:08 Dose: 80 mg Clopidogrel Bisulfate (Plavix) 75 mg PO DAILY [facility] Last Admin: 07/17/18 08:55 Dose: 75 mg Duloxetine HCl (Cymbalta) 40 mg PO DAILY [facility] Last Admin: 07/17/18 08:56 Dose: 40 mg Enoxaparin Sodium (Lovenox) 40 mg SC DAILY [facility]; Protocol Last Admin: 07/17/18 08:56 Dose: 40 mg Insulin Detemir (Levemir) 15 units SC [facility] Last Admin: 07/16/18 21:29 Dose: 15 units Insulin Human Lispro (Humalog) 0 units SC [facility]; Protocol Last Admin: 07/17/18 07:05 Dose: 2 units Lactobacillus Acidophilus (Bacid Acidophilus) 1 cap PO BID [facility] Last Admin: 07/17/18 08:54 Dose: 1 cap Lactulose (Enulose) 20 gm PO DAILY [facility] Last Admin: 07/17/18 08:57 Dose: Not Given Metoprolol Succinate (Toprol Xl) 25 mg PO DAILY [facility] Last Admin: 07/17/18 08:56 Dose: 25 mg Pantoprazole Sodium (Protonix Susp) 40 mg PO 0600 [facility] Last Admin: 07/17/18 05:38 Dose: 40 mg Tamsulosin HCl (Flomax) 0.4 mg PO DAILY [facility] Last Admin: 07/17/18 08:57 Dose: 0.4 mg Trimethoprim/Sulfamethoxazole (Bactrim Ds Tab) 1 tab PO Q12 [facility]; Protocol Stop: 07/22/18 23:59 - Labs Labs: 07/17/18 05:15 07/17/18 10:42 Assessment and Plan - Assessment and Plan (Free Text) Plan: 88 yo female with history of HTN, HLD, Hypothyroid, DM2, Glaucoma, and previous colon cancer [place] [facility] [place] was found to have right facial droop and shuffling gait. Imaging showed left basal ganglia infarct. 1. CVA (cerebral vascular accident) Continue ASA, Plavix, and Statin Dr Padron on physiatry consult improving with PT/OT 2. DM2 BS relatively controlled Levemir 15 units SC HS 3. Hypertension BP stable continue Metoprolol 4. Gait abnormality continue PT/OT 5. UTI/urinary retention denied dysuria urine culture grew Proteus Mirabilis sensitive to Cipro CIPRO CHANGED TO TMPSMX, complete 3 days. asymptomatic and afebrile, no wbc. repeat urinalysis 6. DVT prophylaxis on Lovenox 40mg SC daily
--- NOTE | 2018-07-17 13:35 | CP.PCM.PN ---
Subjective - Date & Time of Evaluation Date of Evaluation: 07/17/18 Time of Evaluation: 13:33 - Subjective Subjective: Chelsie Martinez, born 1930, who has been admitted to [facility] acute inpatient rehabilitation following an admission at [facility] with right facial droop and weakness. Work up revealed a left BG infarct. 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 Right hand dominant. Objective - Vital Signs/Intake and Output Vital Signs (last 24 hours): Temp Pulse Resp BP Pulse Ox 98.1 F 70 18 117/57 L 94 L 07/17/18 09:20 07/17/18 09:40 07/17/18 09:20 07/17/18 09:20 07/17/18 09:20 Intake and Output: 07/17/18 07/17/18 06:59 18:59 Intake Total 400 Output Total 850 Balance -450 - Medications Medications: Current Medications Acetaminophen (Tylenol 325mg Tab) 650 mg PO Q6 PRN PRN Reason: TEMP>=99.5F Acetaminophen (Tylenol 650 Mg Supp) 650 mg RC Q6H PRN PRN Reason: TEMP>=99.5F Aspirin (Ecotrin) 81 mg PO DAILY [facility] Last Admin: 07/17/18 08:56 Dose: 81 mg Atorvastatin Calcium (Lipitor) 80 mg PO DIN [facility] Last Admin: 07/16/18 17:08 Dose: 80 mg Clopidogrel Bisulfate (Plavix) 75 mg PO DAILY [facility] Last Admin: 07/17/18 08:55 Dose: 75 mg Duloxetine HCl (Cymbalta) 40 mg PO DAILY [facility] Last Admin: 07/17/18 08:56 Dose: 40 mg Enoxaparin Sodium (Lovenox) 40 mg SC DAILY [facility]; Protocol Last Admin: 07/17/18 08:56 Dose: 40 mg Insulin Detemir (Levemir) 15 units SC HS [facility] Last Admin: 07/16/18 21:29 Dose: 15 units Insulin Human Lispro (Humalog) 0 units SC ACHS [facility]; Protocol Last Admin: 07/17/18 12:21 Dose: 8 units Lactobacillus Acidophilus (Bacid Acidophilus) 1 cap PO BID [facility] Last Admin: 07/17/18 08:54 Dose: 1 cap Lactulose (Enulose) 20 gm PO DAILY [facility] Last Admin: 07/17/18 08:57 Dose: Not Given Metoprolol Succinate (Toprol Xl) 25 mg PO DAILY [facility] Last Admin: 07/17/18 08:56 Dose: 25 mg Pantoprazole Sodium (Protonix Susp) 40 mg PO 0600 [facility] Last Admin: 07/17/18 05:38 Dose: 40 mg Tamsulosin HCl (Flomax) 0.4 mg PO DAILY [facility] Last Admin: 07/17/18 08:57 Dose: 0.4 mg Trimethoprim/Sulfamethoxazole (Bactrim Ds Tab) 1 tab PO Q12 [facility]; Protocol Stop: 07/22/18 23:59 - Labs Labs: 07/17/18 05:15 07/17/18 10:42 - Constitutional Appears: Non-toxic, No Acute Distress - Head Exam Head Exam: ATRAUMATIC, NORMAL INSPECTION, NORMOCEPHALIC - Eye Exam Eye Exam: EOMI - ENT Exam ENT Exam: Mucous Membranes Moist - Respiratory Exam Respiratory Exam: NORMAL BREATHING PATTERN. absent: Accessory Muscle Use, Chest Wall Tenderness - Cardiovascular Exam Cardiovascular Exam: REGULAR RHYTHM - GI/Abdominal Exam GI & Abdominal Exam: Normal Bowel Sounds. absent: Guarding - Extremities Exam Extremities Exam: absent: Calf Tenderness - Neurological Exam Neurological Exam: Alert, Awake, CN II-XII Intact - Psychiatric Exam Psychiatric exam: Flat Affect - Skin Skin Exam: Warm Assessment and Plan - Assessment and Plan (Free Text) Assessment: Chelsie Martinez, born 1930, who has been admitted to [facility] acute inpatient rehabilitation following an admission at [facility] with right facial droop and weakness. Work up revealed a left BG infarct. 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 Right hand dominant. PT/OT to continue to help increase functional independence Team conference for d/c planning Pain: controlled Vascular: no evidence of DVT GI: No evidence of constipation or diarrhea Patient continues to be an excellent acute rehabilitation candidate and will have continued focused PT, OT and recreational therapy to help facilitate a safe and appropriate d/c plan
[2018-07-17] MEDS: Tmp-Smz 800 mg-160 mg DS Tab PO SCH (21:37)
[2018-07-17] MEDS: Insulin Detemir 100 Units/ml Inj SC SCH (21:38)
[2018-07-18] MEDS: Pantoprazole 40 mg Susp UD PO SCH (06:22)
[2018-07-18] MEDS: Insulin Lispro (humaLOG) 100 Units/ml Inj SC SCH ×4 (08:13→21:35)
[2018-07-18] MEDS: Lactobacillus Acidophilus 500 MU Cap PO SCH ×2 (08:16→16:54)
[2018-07-18] MEDS: Tmp-Smz 800 mg-160 mg DS Tab PO SCH ×2 (08:17→21:34)
[2018-07-18] MEDS: Enoxaparin 40 mg Syringe SC SCH (09:06)
[2018-07-18] MEDS: Metoprolol Succinate 25 mg XL Tab PO SCH (09:06)
[2018-07-18] MEDS: Insulin Detemir 100 Units/ml Inj SC SCH (21:34)
[2018-07-19] MEDS: Pantoprazole 40 mg Susp UD PO SCH (05:41)
[2018-07-19] MEDS: Insulin Lispro (humaLOG) 100 Units/ml Inj SC SCH ×4 (06:59→22:41)
[2018-07-19] MEDS: Lactobacillus Acidophilus 500 MU Cap PO SCH ×2 (08:15→18:28)
[2018-07-19] MEDS: Tmp-Smz 800 mg-160 mg DS Tab PO SCH ×2 (08:16→21:31)
[2018-07-19] MEDS: Metoprolol Succinate 25 mg XL Tab PO SCH (08:17)
[2018-07-19] MEDS ORDERED: Enoxaparin 40 mg Syringe SC SCH (09:00)
--- NOTE | 2018-07-19 12:29 | CP.PCM.PN ---
Subjective - Date & Time of Evaluation Date of Evaluation: 07/19/18 Time of Evaluation: 10:00 - Subjective Subjective: Patient seen and examined. Denied any complaint but nurse claimed she was noted to have on and of hematuria and needed on and off catheterization because of urinary retention. Objective - Vital Signs/Intake and Output Vital Signs (last 24 hours): Temp Pulse Resp BP Pulse Ox 97.9 F 60 18 153/80 H 96 07/19/18 07:26 07/19/18 08:17 07/19/18 07:26 07/19/18 08:17 07/19/18 07:26 Intake and Output: 07/19/18 07/19/18 06:59 18:59 Intake Total 500 Output Total 1 Balance 499 - Medications Medications: Current Medications Acetaminophen (Tylenol 325mg Tab) 650 mg PO Q6 PRN PRN Reason: TEMP>=99.5F Acetaminophen (Tylenol 650 Mg Supp) 650 mg RC Q6H PRN PRN Reason: TEMP>=99.5F Aspirin (Ecotrin) 81 mg PO DAILY [facility] Last Admin: 07/19/18 08:15 Dose: 81 mg Atorvastatin Calcium (Lipitor) 80 mg PO DIN [facility] Last Admin: 07/18/18 16:55 Dose: 80 mg Clopidogrel Bisulfate (Plavix) 75 mg PO DAILY [facility] Last Admin: 07/19/18 08:16 Dose: 75 mg Duloxetine HCl (Cymbalta) 40 mg PO DAILY [facility] Last Admin: 07/19/18 08:16 Dose: 40 mg Enoxaparin Sodium (Lovenox) 40 mg SC DAILY [facility]; Protocol Last Admin: 07/19/18 08:17 Dose: 40 mg Insulin Detemir (Levemir) 15 units SC HS [facility] Last Admin: 07/18/18 21:34 Dose: 15 units Insulin Human Lispro (Humalog) 0 units SC [facility]; Protocol Last Admin: 07/19/18 11:30 Dose: 4 units Lactobacillus Acidophilus (Bacid Acidophilus) 1 cap PO BID [facility] Last Admin: 07/19/18 08:15 Dose: 1 cap Lactulose (Enulose) 20 gm PO DAILY [facility] Last Admin: 07/19/18 08:16 Dose: 20 gm Metoprolol Succinate (Toprol Xl) 25 mg PO DAILY [facility] Last Admin: 07/19/18 08:17 Dose: 25 mg Pantoprazole Sodium (Protonix Susp) 40 mg PO 0600 [facility] Last Admin: 07/19/18 05:41 Dose: 40 mg Tamsulosin HCl (Flomax) 0.4 mg PO DAILY [facility] Last Admin: 07/19/18 08:16 Dose: 0.4 mg Trimethoprim/Sulfamethoxazole (Bactrim Ds Tab) 1 tab PO Q12 [facility]; Protocol Stop: 07/22/18 23:59 Last Admin: 07/19/18 08:16 Dose: 1 tab - Labs Labs: 07/17/18 05:15 07/17/18 10:42 - Constitutional Appears: No Acute Distress - Head Exam Head Exam: ATRAUMATIC - Eye Exam Eye Exam: absent: Scleral icterus - ENT Exam ENT Exam: Mucous Membranes Moist - Neck Exam Neck Exam: absent: Meningismus - Respiratory Exam Respiratory Exam: absent: Rales, Rhonchi, Wheezes, Respiratory Distress - Cardiovascular Exam Cardiovascular Exam: REGULAR RHYTHM, +S1, +S2 - GI/Abdominal Exam GI & Abdominal Exam: Soft. absent: Tenderness - Rectal Exam Rectal Exam: Deferred - Neurological Exam Neurological Exam: Alert, Oriented x3 - Psychiatric Exam Psychiatric exam: Normal Affect - Skin Skin Exam: Dry, Intact Assessment and Plan - Assessment and Plan (Free Text) Assessment: 88 yo female with history of HTN, HLD, Hypothyroid, DM2, Glaucoma, and previous colon cancer admitted initially for psychiatric issue [place] [facility] but was found to have right facial droop and shuffling gait. Imaging showed left basal ganglia infarct. 1. CVA (cerebral vascular accident) Continue ASA, Plavix, and Statin Dr Padron on physiatry consult improving with PT/OT 2. DM2 BS relatively controlled Levemir 15 units SC HS 3. Hypertension BP slightly elevated continue Metoprolol 4. Gait abnormality continue PT/OT 5. UTI/urinary retention on and off hematuria and urinary retention requiring catheterization urine culture grew Proteus Mirabilis antibiotic switched to [id number] because of possible somnolence effect of Cipro? repeat urinalysis 6. DVT prophylaxis on Lovenox 40mg SC daily
--- NOTE | 2018-07-19 16:26 | CP.PCM.PN ---
Subjective - Date & Time of Evaluation Date of Evaluation: 07/19/18 Time of Evaluation: 16:25 - Subjective Subjective: Patient seen in the room NAD no cyanosis or jaundice stable and is set for d/c 07/21/18 to [facility] and then to the [facility] Objective - Vital Signs/Intake and Output Vital Signs (last 24 hours): Temp Pulse Resp BP Pulse Ox 97.9 F 60 18 153/80 H 96 07/19/18 07:26 07/19/18 08:17 07/19/18 07:26 07/19/18 08:17 07/19/18 07:26 Intake and Output: 07/19/18 07/19/18 06:59 18:59 Intake Total 500 Output Total 1 Balance 499 - Medications Medications: Current Medications Acetaminophen (Tylenol 325mg Tab) 650 mg PO Q6 PRN PRN Reason: TEMP>=99.5F Acetaminophen (Tylenol 650 Mg Supp) 650 mg RC Q6H PRN PRN Reason: TEMP>=99.5F Aspirin (Ecotrin) 81 mg PO DAILY [facility] Last Admin: 07/19/18 08:15 Dose: 81 mg Atorvastatin Calcium (Lipitor) 80 mg PO DIN [facility] Last Admin: 07/18/18 16:55 Dose: 80 mg Clopidogrel Bisulfate (Plavix) 75 mg PO DAILY [facility] Last Admin: 07/19/18 08:16 Dose: 75 mg Duloxetine HCl (Cymbalta) 40 mg PO DAILY [facility] Last Admin: 07/19/18 08:16 Dose: 40 mg Enoxaparin Sodium (Lovenox) 40 mg SC DAILY [facility]; Protocol Last Admin: 07/19/18 08:17 Dose: 40 mg Insulin Detemir (Levemir) 15 units SC HS [facility] Last Admin: 07/18/18 21:34 Dose: 15 units Insulin Human Lispro (Humalog) 0 units SC ACHS [facility]; Protocol Last Admin: 07/19/18 11:30 Dose: 4 units Lactobacillus Acidophilus (Bacid Acidophilus) 1 cap PO BID [facility] Last Admin: 07/19/18 08:15 Dose: 1 cap Lactulose (Enulose) 20 gm PO DAILY [facility] Last Admin: 07/19/18 08:16 Dose: 20 gm Metoprolol Succinate (Toprol Xl) 25 mg PO DAILY [facility] Last Admin: 07/19/18 08:17 Dose: 25 mg Pantoprazole Sodium (Protonix Susp) 40 mg PO 0600 [facility] Last Admin: 07/19/18 05:41 Dose: 40 mg Tamsulosin HCl (Flomax) 0.4 mg PO DAILY [facility] Last Admin: 07/19/18 08:16 Dose: 0.4 mg Trimethoprim/Sulfamethoxazole (Bactrim Ds Tab) 1 tab PO Q12 [facility]; Protocol Stop: 07/22/18 23:59 Last Admin: 07/19/18 08:16 Dose: 1 tab - Labs Labs: 07/17/18 05:15 07/17/18 10:42
--- NOTE | 2018-07-19 19:47 | CP.PCM.CON ---
History of Present Illness - History of Present Illness History of Present Illness: OBGYN was called to evaluate Ms. Martinez due to report of recent vaginal bleeding. Initially it was thought that she was experiencing hematuria due to an indwelling catheter and then several episodes of straight catheterization. However the nurse noted she was having valeria vaginal bleeding and we were called to evaluate. Ms. Martinez describes a previous episode of bleeding, however given her memory deficits it is hard to know exactly when this occurred. She describes it as anywhere from 2 months to one year ago. She also reports that she was seen by a doctor and was told she would need surgery, but she is not clear what her diagnosis was at that time. She says she never went to see the surgeon. She is endorsing some anterior pelvic pain at this time but no other symptoms. Denies recent weight gain, bloating or early satiety. She believes she completed menopause at the age of 52, previously her periods were regular. She has never been . Review of Systems - Review of Systems Systems not reviewed;Unavailable: Dementia - EENT Eyes: Blind Spots - Cardiovascular Cardiovascular: As Per HPI - Respiratory Respiratory: As Per HPI - Gastrointestinal Gastrointestinal: As Per HPI - Genitourinary Genitourinary: As Per HPI - Reproductive: Female Reproductive:Female: As Per HPI - Menstruation Menstruation: As Per HPI - Neurological Additional comments: Dysarthria, intermittent receptive aphasia Past Patient History - Infectious Disease Hx of Infectious Diseases: None - Tetanus Immunizations Tetanus Immunization: Unknown - Past Medical History & Family History Past Medical History?: Yes - Past Social History Smoking Status: Never Smoked Alcohol: None Drugs: Denies Home Situation {Lives}: Alone - CARDIAC Hx Hypercholesterolemia: Yes Hx Hypertension: Yes - PULMONARY Hx Chronic Obstructive Pulmonary Disease (COPD): Yes - NEUROLOGICAL Hx Neurological Disorder: Yes Other/Comment: neuropathy - HEENT Hx HEENT Problems: Yes Hx Cataracts: Yes (LEFT WITH BLURRY VISION) Hx Glaucoma: Yes (RIGHT EYE) - RENAL Hx Chronic Kidney Disease: No - ENDOCRINE/METABOLIC Hx Diabetes Mellitus Type 2: Yes Hx Hypothyroidism: Yes - HEMATOLOGICAL/ONCOLOGICAL Hx Cancer: Yes - INTEGUMENTARY Hx Dermatological Problems: No - MUSCULOSKELETAL/RHEUMATOLOGICAL Hx Falls: No - GASTROINTESTINAL Hx Gastrointestinal Disorders: Yes (ACUTE COLITIS) - GENITOURINARY/GYNECOLOGICAL Hx Genitourinary Disorders: No - PSYCHIATRIC Hx Anxiety: Yes Hx Depression: Yes - SURGICAL HISTORY Hx Appendectomy: Yes Hx Cholecystectomy: Yes Other/Comment: Colon tumor removal (benign) - ANESTHESIA Hx Anesthesia: Yes Hx Anesthesia Reactions: No Hx Malignant Hyperthermia: No Meds Allergies/Adverse Reactions: Allergies Allergy/AdvReac Type Severity Reaction Status Date / Time No Known Allergies Allergy Verified 07/01/18 23:22 - Medications Medications: Current Medications Acetaminophen (Tylenol 325mg Tab) 650 mg PO Q6 PRN PRN Reason: TEMP>=99.5F Acetaminophen (Tylenol 650 Mg Supp) 650 mg RC Q6H PRN PRN Reason: TEMP>=99.5F Aspirin (Ecotrin) 81 mg PO DAILY [facility] Last Admin: 07/19/18 08:15 Dose: 81 mg Atorvastatin Calcium (Lipitor) 80 mg PO DIN [facility] Last Admin: 07/19/18 18:29 Dose: 80 mg Clopidogrel Bisulfate (Plavix) 75 mg PO DAILY [facility] Last Admin: 07/19/18 08:16 Dose: 75 mg Duloxetine HCl (Cymbalta) 40 mg PO DAILY [facility] Last Admin: 07/19/18 08:16 Dose: 40 mg Enoxaparin Sodium (Lovenox) 40 mg SC DAILY [facility]; Protocol Last Admin: 07/19/18 08:17 Dose: 40 mg Insulin Detemir (Levemir) 15 units SC [facility] Last Admin: 07/18/18 21:34 Dose: 15 units Insulin Human Lispro (Humalog) 0 units SC [facility]; Protocol Last Admin: 07/19/18 18:30 Dose: 3 units Lactobacillus Acidophilus (Bacid Acidophilus) 1 cap PO BID [facility] Last Admin: 07/19/18 18:28 Dose: 1 cap Lactulose (Enulose) 20 gm PO DAILY [facility] Last Admin: 07/19/18 08:16 Dose: 20 gm Metoprolol Succinate (Toprol Xl) 25 mg PO DAILY [facility] Last Admin: 07/19/18 08:17 Dose: 25 mg Pantoprazole Sodium (Protonix Susp) 40 mg PO 0600 [facility] Last Admin: 07/19/18 05:41 Dose: 40 mg Tamsulosin HCl (Flomax) 0.4 mg PO DAILY [facility] Last Admin: 07/19/18 08:16 Dose: 0.4 mg Trimethoprim/Sulfamethoxazole (Bactrim Ds Tab) 1 tab PO Q12 [facility]; Protocol Stop: 07/22/18 23:59 Last Admin: 07/19/18 08:16 Dose: 1 tab Physical Exam - Constitutional Appears: Chronically Ill - Head Exam Head Exam: ATRAUMATIC - Eye Exam Eye Exam: EOMI, Normal appearance - ENT Exam ENT Exam: Mucous Membranes Moist - Respiratory Exam Respiratory Exam: NORMAL BREATHING PATTERN - GI/Abdominal Exam GI & Abdominal Exam: Soft. absent: Tenderness - Exam Speculum exam: Vaginal Bleeding Additional comments: Vulva appear atrophic, scant dark red/brown blood seen in the vagina. Cervix appears normal. Patient did not tolerate the speculum exam well. - Psychiatric Exam Additional comments: Patient is minimally oriented to time, somewhat oriented to place and situation. She is oriented to self. She occasionally answers a question tangentially. Results - Vital Signs Recent Vital Signs: Last Vital Signs Temp 97.9 F 07/19/18 07:26 Pulse 60 07/19/18 08:17 Resp 18 07/19/18 07:26 BP 153/80 H 07/19/18 08:17 Pulse Ox 96 07/19/18 07:26 - Labs Result Diagrams: 07/17/18 05:15 07/17/18 10:42 Labs: Laboratory Results - last 24 hr 07/18/18 07/19/18 07/19/18 20:56 05:42 11:06 POC Glucose (mg/dL) 113 H 139 H 292 H 07/19/18 15:38 POC Glucose (mg/dL) 244 H Assessment & Plan (1) Post-menopausal bleeding Status: Acute - Assessment and Plan (Free Text) Assessment: This is an 88 year old female with approximately 2 days of new onset post wolfgang pausal vaginal bleeding. It's hard to determine based on the patient's limited historical ability but she may have had an evaluation for this in the past. Plan: Ms. Martinez's situation is complex for a number of reasons. While she does have acute vaginal bleeding demonstrated a speculum exam today, it is of limited quantity and her largely normal Hgb suggests that this bleeding is also of little hemodynamic significance. Her bleeding also happens to have coincided wit h the initiation of anticoagulant medications, which could be confounding the differential and could have indeed caused her bleeding to begin. There is also the larger issue of quality of life and necessary interventions to discuss. The most worrisome differential diagnosis would be endometrial/uteran cancer, or other intraabdominal malignancy. However, in an 88 year old patient with cognitive impairment who just experienced a CVA her life expectancy is much more likely to be limited by her cardiovascular disease rather than any potential MACHINE BENDER malignancies. Lastly her cognitive impairment is going to make treating her ethically a complex issue. I believe she has the ability to understand her medical status in a very limited capacity. She was able to verbalize to me today what would happen if she was ultimately diagnosed with cancer and it was not treated, most importantly she could identify the ultimate outcome of dying. However, during the course of our interview there were also times where she displayed confusion and did not seem able to fully understand the questions she was being asked. I believe that she was able to consent to the exam today, and she did verbalize the desire to know what was causing her bleeding and to treat a malignancy should one be diagnosed, however I don't believe that she genuinely can understand the possible repercussions of undergoing numerous tests that may be required for diagnosis as well as the potentially harmful treatments she might be offered. In addition, given her age and extensive co-morbidities, should she be diagnosed with a malignancy she would be an incredibly poor surgical candidate and would likely not be able to meet with a surgeon that would consider performing a hysterectomy or other invasive procedure. Not to mention if would likely be more harmful than beneficial for the patient to stop her antiplatelet agents in order to safely undergo a major procedure. This suggests that if we cannot offer her the proper treatments it may be less maleficent to spare her from invasive testing. In an attempt to respect patient autonomy she was offered the option of transvaginal US, which she accepted, however given the pain she experienced during the speculum exam this may not be possible to complete. No matter the results of the transvaginal US or other imaging tests that may be ordered I do not believe that this new symptom should delay her discharge into subacute rehab, as the progression of her recovery will be entirely more beneficial to her than any further testing she may have here in the hospital. Given that her bleeding is not life threatening and does not require any surgical intervention it can safely be followed up on as an outpatient after discharge. If the patient continues to wish for a diagnosis to be made she should be referred to an OBGYN in the community. If the patient desires we can prescribe a short course of progesterone for symptomatic relief. We will f/u on the results of her imaging and discuss progesterone with her tomorrow before signing off. Thank you for the opportunity to consult on this patient.
[2018-07-19] MEDS: Insulin Detemir 100 Units/ml Inj SC SCH (21:31)
[2018-07-19] MEDS ORDERED: Insulin Lispro (humaLOG) 100 Units/ml Inj SC STA (21:54)
[2018-07-20] MEDS: Pantoprazole 40 mg Susp UD PO SCH (05:46)
[2018-07-20] MEDS: Insulin Lispro (humaLOG) 100 Units/ml Inj SC SCH ×4 (06:57→21:56)
[2018-07-20 07:28] LABS: HEMOGLOBIN 11.9 g/dL (12.0-16.0); MEAN CELL VOLUME 93.3 fl (81.0-99.0); MEAN CORPUSCULAR HEMOGLOBIN 31.8 pg (27.0-31.0); MEAN CORPUSCULAR HGB CONC 34.1 g/dL (33.0-37.0); RBC 3.75 Mil/uL (3.80-5.20)
[2018-07-20 07:47] LABS: BLOOD UREA NITROGEN 23 mg/dl (7-17); CALCIUM 9.2 mg/dL (8.4-10.2); GFR NON-AFRICAN AMERICAN 52
[2018-07-20 08:17] VITALS: O2SAT 96
[2018-07-20] MEDS: Tmp-Smz 800 mg-160 mg DS Tab PO SCH ×2 (08:42→21:55)
[2018-07-20] MEDS: Metoprolol Succinate 25 mg XL Tab PO SCH (08:43)
[2018-07-20] MEDS: Lactobacillus Acidophilus 500 MU Cap PO SCH ×2 (08:47→18:00)
--- NOTE | 2018-07-20 09:04 | US ---
Date of service: 07/19/2018 HISTORY: Post menopausal bleeding COMPARISON: None available. TECHNIQUE: Grayscale, color Doppler and spectral evaluation the pelvis performed transabdominally. The patient was unable to void, therefore transvaginal portion was not performed FINDINGS: UTERUS: Measures 6.9 x 2.5 x 3.9 cm. Anteverted. Normal in size and appearance. No fibroid or other mass lesion seen. ENDOMETRIUM: Measures 9 mm in diameter. Unremarkable. CERVIX: No cervical abnormality identified. RIGHT OVARY: Not visualized LEFT OVARY: Not visualized FREE FLUID: No significant free fluid noted. OTHER FINDINGS: None. IMPRESSION: Abnormally thickened endometrium in the setting of post menopausal bleeding. Findings may represent endometrial hyperplasia polyp or carcinoma. Further investigation is warranted.
[2018-07-20 21:39] LABS: URINE BACTERIA OCC (<OCC); URINE BILIRUBIN NEGATIVE (NEGATIVE); URINE BLOOD LARGE (NEGATIVE); URINE CLARITY CLOUDY (Clear); URINE COLOR RED (YELLOW); URINE GLUCOSE (UA) 50 mg/dL (NEGATIVE); URINE LEUKOCYTE ESTERASE NEG Leu/uL (Negative); URINE PROTEIN 30 mg/dL (NEGATIVE); URINE UROBILINOGEN 0.2-1.0 mg/dL (0.2-1.0)
[2018-07-20] MEDS: Insulin Detemir 100 Units/ml Inj SC SCH (21:56)
[2018-07-21] MEDS: Pantoprazole 40 mg Susp UD PO SCH (05:50)
[2018-07-21 06:31] LABS: URINE BILIRUBIN NEGATIVE (NEGATIVE); URINE BLOOD LARGE (NEGATIVE); URINE CLARITY SLIGHTY-CLOUDY (Clear); URINE COLOR LIGHT RED (YELLOW); URINE GLUCOSE (UA) NEG (NEGATIVE); URINE LEUKOCYTE ESTERASE TRACE Leu/uL (Negative); URINE PROTEIN NEGATIVE (NEGATIVE); URINE UROBILINOGEN 0.2-1.0 mg/dL (0.2-1.0)
[2018-07-21 06:54] LABS: BASO # 0.1 K/uL (0.0-0.2); BASO % 1.1 % (0.0-2.0); EOS # 0.3 K/uL (0.0-0.7); EOS % 4.1 % (0.0-4.0); HEMOGLOBIN 11.5 g/dL (12.0-16.0); LYMPH # 1.9 K/uL (1.0-4.3); LYMPH % 26.1 % (20.0-40.0); MEAN CELL VOLUME 93.3 fl (81.0-99.0); MEAN CORPUSCULAR HEMOGLOBIN 31.6 pg (27.0-31.0); MEAN CORPUSCULAR HGB CONC 33.9 g/dL (33.0-37.0); MEAN PLATELET VOLUME 8.4 fl (7.2-11.7); MONO # 0.8 K/uL (0.0-0.8); MONO % 10.5 % (0.0-10.0); NEUT # 4.2 K/uL (1.8-7.0); NEUT % 58.2 % (50.0-75.0); RBC 3.65 Mil/uL (3.80-5.20); RED CELL DISTRIBUTION WIDTH 12.9 % (11.5-14.5); WHITE BLOOD COUNT 7.3 K/uL (4.8-10.8)
[2018-07-21] MEDS: Insulin Lispro (humaLOG) 100 Units/ml Inj SC SCH ×2 (07:06→12:00)
[2018-07-21] MEDS: Lactobacillus Acidophilus 500 MU Cap PO SCH (08:24)
[2018-07-21] MEDS: Tmp-Smz 800 mg-160 mg DS Tab PO SCH (08:24)
[2018-07-21] MEDS: Metoprolol Succinate 25 mg XL Tab PO SCH (08:26)
[2018-07-21 08:29] VITALS: BP 116/58; PULSE 67
[2018-07-21 08:51] VITALS: RESP 20; TEMP 97.1
--- NOTE | 2018-07-21 10:32 | CP.PCM.DIS ---
Provider - Provider Date of Admission: 07/01/18 22:29 Attending physician: Sotero Cordero MD Primary care physician: Steve Oro MD Consults: 07/01/18 22:53 Case Management Referral Routine Comment: Physician Instructions: Reason For Exam: Reason for Referral: Discharge Planning 07/01/18 23:05 Physiatry Consult Routine Comment: Consulting Provider: Steven Padron Consulting Physician: Steven Padron Reason for Consult: Physiatry consult 07/02/18 02:37 Pharmacist Consult As Ordered Comment: Physician Instructions: Reason For Exam: Patient on lovenox. 07/04/18 10:10 Urology Consult Routine Comment: Consulting Provider: Johnny Juarez Jr. Consulting Physician: Johnny Juarez Jr. Reason for Consult: urinary retention 07/19/18 13:50 RESISTOR WINDER Consult Routine Comment: [facility] Consulting Provider: Chuck Frias Consulting Physician: Chuck Frias Reason for Consult: [facility] Time Spent in preparation of Discharge (in minutes): 25 Diagnosis - Discharge Diagnosis (1) CVA (cerebral vascular accident) Status: Acute Comment: continue ASA and statin. continue PT/OT (2) Post-menopausal bleeding Status: Acute Comment: transvaginal US showed endometrial thickening. ELECTRIC MOTOR REPAIRING SUPERVISOR consulted; advised no invasive investigation based on her age and co-morbities but advised [facility] follow up (3) UTI (urinary tract infection) Status: Acute Comment: continue Cipro 500mg PO BID for 7 days. continue indwelling singleton catheter for urinary retention (4) Gait abnormality Status: Acute Comment: continue PT/OT Hospital Course - Lab Results Lab Results: Micro Results 07/11/18 15:40 Urine,Catheterized Urine Culture - Final Proteus Mirabilis 07/02/18 07:20 Urine,Singleton Urine Culture - Final 10-50,000 CFU/ML. MULTIPLE SPECIES. PROBABLE CONTAMINATION. Most Recent Lab Values WBC 7.3 K/uL (4.8-10.8) 07/21/18 05:30 RBC 3.65 Mil/uL (3.80-5.20) L 07/21/18 05:30 Hgb 11.5 g/dL (12.0-16.0) L 07/21/18 05:30 Hct 34.0 % (34.0-47.0) 07/21/18 05:30 MCV 93.3 fl (81.0-99.0) 07/21/18 05:30 MCH 31.6 pg (27.0-31.0) H 07/21/18 05:30 MCHC 33.9 g/dL (33.0-37.0) 07/21/18 05:30 RDW 12.9 % (11.5-14.5) 07/21/18 05:30 Plt Count 254 K/uL (130-400) 07/21/18 05:30 MPV 8.4 fl (7.2-11.7) 07/21/18 05:30 Neut % (Auto) 58.2 % (50.0-75.0) 07/21/18 05:30 Lymph % (Auto) 26.1 % (20.0-40.0) 07/21/18 05:30 [place] % (Auto) 10.5 % (0.0-10.0) H 07/21/18 05:30 Eos % (Auto) 4.1 % (0.0-4.0) H 07/21/18 05:30 Baso % (Auto) 1.1 % (0.0-2.0) 07/21/18 05:30 Neut # (Auto) 4.2 K/uL (1.8-7.0) 07/21/18 05:30 Lymph # (Auto) 1.9 K/uL (1.0-4.3) 07/21/18 05:30 [place] # (Auto) 0.8 K/uL (0.0-0.8) 07/21/18 05:30 Eos # (Auto) 0.3 K/uL (0.0-0.7) 07/21/18 05:30 Baso # (Auto) 0.1 K/uL (0.0-0.2) 07/21/18 05:30 Sodium 132 mmol/l (132-148) 07/20/18 05:30 Potassium 4.7 MMOL/L (3.6-5.0) 07/20/18 05:30 Chloride 93 mmol/L (98-107) L 07/20/18 05:30 Carbon Dioxide 26 mmol/L (22-30) 07/20/18 05:30 Anion Gap 18 (10-20) 07/20/18 05:30 BUN 23 mg/dl (7-17) H 07/20/18 05:30 Creatinine 1.0 mg/dl (0.7-1.2) 07/20/18 05:30 Est GFR ( Amer) > 60 07/20/18 05:30 Est GFR (Non-Af Amer) 52 07/20/18 05:30 POC Glucose (mg/dL) 150 mg/dL (65-110) H 07/21/18 05:27 Random Glucose 136 mg/dL (65-105) H 07/20/18 05:30 Calcium 9.2 mg/dL (8.4-10.2) 07/20/18 05:30 Total Bilirubin 0.5 mg/dl (0.2-1.3) 07/10/18 12:01 AST 40 U/L (14-36) H 07/10/18 12:01 ALT 34 U/L (9-52) 07/10/18 12:01 Alkaline Phosphatase 201 U/L (38-126) H 07/10/18 12:01 Total Protein 7.5 G/DL (6.3-8.2) 07/10/18 12:01 Albumin 3.9 g/dL (3.5-5.0) 07/10/18 12:01 Globulin 3.6 gm/dL (2.2-3.9) 07/10/18 12:01 Albumin/Globulin Ratio 1.1 (1.0-2.1) 07/10/18 12:01 Urine Color Light red (YELLOW) 07/21/18 06:15 Urine Clarity Slighty-cloudy (Clear) 07/21/18 06:15 Urine pH 8.0 (5.0-8.0) 07/21/18 06:15 Ur Specific [place] 1.010 (1.003-1.030) 07/21/18 06:15 Urine Protein Negative mg/dL (NEGATIVE) 07/21/18 06:15 Urine Glucose (UA) Neg mg/dL (NEGATIVE) 07/21/18 06:15 Urine Ketones Negative mg/dL (NEGATIVE) 07/21/18 06:15 Urine Blood Large (NEGATIVE) 07/21/18 06:15 Urine Nitrate Negative (NEGATIVE) 07/21/18 06:15 Urine Bilirubin Negative (NEGATIVE) 07/21/18 06:15 Urine Urobilinogen 0.2-1.0 mg/dL (0.2-1.0) 07/21/18 06:15 Ur Leukocyte Esterase Trace Ailyn/uL (Negative) 07/21/18 06:15 Urine RBC (Auto) 1504 /hpf (0-3) H 07/21/18 06:15 Urine WBC Clumps (Auto) Many /hpf (NONE) H 07/10/18 16:23 Urine Microscopic WBC 11 /hpf (0-5) H 07/21/18 06:15 Ur Squamous Epith Cells 1 /hpf (0-5) 07/10/18 16:23 Urine Bacteria Occ (<OCC) H 07/20/18 21:28 Hyaline Casts 2 /hpf (0-2) 07/10/18 16:23 Granular Casts (Auto) 1 /lpf (0-1) 07/10/18 16:23 - Hospital Course Hospital Course: 88 yo female with history of HTN, HLD, Hypothyroid, DM2, Glaucoma, and history of colon cancer was admitted initially on 06/17/2018 in psyche unit in [facility] because of depression and uncontrolled anxiety. She was found later with right facial droop and shuffling gait and was transferred and admitted to the medical floor on 06/28/2018 with acute CVA. Brain MRI showed acute infarct of the left basal ganglia and lal radiata. She was later on transferred to [facility] of [facility] on 07/01/2018 to continue her therapy. Patient was doing well with therapy but developed urinary retention and had to be catheterized. She was also found to have UTI with hematuria. Bladder training was initiated but patient was not able to get free of the catheter. Patient was started on antibiotics base on the sensitivity of the culture which grew Proteus Mirabilis. Patient also was noted to have gross vaginal bleeding and was referred to complex human resources manager who advised based on her age and co-morbidites to hold further invasive investigation. She also surmised that this new finding should not to hold her transfer to [facility]. Discharge Exam - Head Exam Head Exam: ATRAUMATIC - Eye Exam Eye Exam: absent: Scleral icterus - ENT Exam ENT Exam: Mucous Membranes Moist - Respiratory Exam Respiratory Exam: absent: Rales, Rhonchi, Wheezes, Respiratory Distress - Cardiovascular Exam Cardiovascular Exam: REGULAR RHYTHM, +S1, +S2 - GI/Abdominal Exam GI & Abdominal Exam: Soft. absent: Tenderness - Rectal Exam Rectal Exam: Deferred - Neurological Exam Neurological exam: Alert, Oriented x3 - Psychiatric Exam Psychiatric exam: Normal Affect - Skin Skin Exam: Dry, Intact Discharge Plan - Discharge Medications Prescriptions: Ciprofloxacin [Cipro] 500 mg PO BID #14 tab - Follow Up Plan Condition: GOOD Disposition: REHAB FACILITY/REHAB UNIT Referrals: Steve Oro MD [Primary Care Provider] -
== END 2018-07-21 15:00 | DRG 57 ==
PROVIDERS: ADMIT Internal Medicine; ATTEND Internal Medicine
PROC: F07Z9FZ Gait Training/Functional Ambulation Treatment using Assistive, Adaptive, Supportive or Protective Equipment (ICD-10-PCS; principal; 2018-07-01)
PROC: F07M6FZ Therapeutic Exercise Treatment of Musculoskeletal System - Whole Body using Assistive, Adaptive, Supportive or Protective Equipment (ICD-10-PCS; 2018-07-01)
PROC: F08Z4FZ Home Management Treatment using Assistive, Adaptive, Supportive or Protective Equipment (ICD-10-PCS; 2018-07-01)
DX: I69.354 Hemiplegia and hemiparesis following cerebral infarction affecting left non-dominant side (principal); N39.0 Urinary tract infection, site not specified; J44.9 Chronic obstructive pulmonary disease, unspecified; N95.0 Postmenopausal bleeding; I69.392 Facial weakness following cerebral infarction; Z79.4 Long term (current) use of insulin; Z85.038 Personal history of other malignant neoplasm of large intestine; Z87.891 Personal history of nicotine dependence; Z90.49 Acquired absence of other specified parts of digestive tract; F32.9 Major depressive disorder, single episode, unspecified; F41.9 Anxiety disorder, unspecified; G62.9 Polyneuropathy, unspecified; H26.9 Unspecified cataract; H53.8 Other visual disturbances; K52.9 Noninfective gastroenteritis and colitis, unspecified; R26.9 Unspecified abnormalities of gait and mobility; R31.9 Hematuria, unspecified; I69.390 Apraxia following cerebral infarction; B96.4 Proteus (mirabilis) (morganii) as the cause of diseases classified elsewhere; E03.9 Hypothyroidism, unspecified; E11.9 Type 2 diabetes mellitus without complications; E78.00 Pure hypercholesterolemia, unspecified; E78.5 Hyperlipidemia, unspecified; H40.9 Unspecified glaucoma; I10 Essential (primary) hypertension